=== PATIENT | male | born 1935 | race Caucasian/White ===

== ENCOUNTER 2018-02-12 20:52 | Inpatient (IN) | payer MEDICARE ==
[2018-02-12 21:44] LABS: BASO % 0.4 % (0.0-2.0); EOS # 0.2 K/uL (0.0-0.7); EOS % 1.6 % (0.0-4.0); LYMPH # 1.4 K/uL (1.0-4.3); LYMPH % 14.3 % (20.0-40.0); MEAN CELL VOLUME 97.1 fl (80.0-94.0); MEAN CORPUSCULAR HEMOGLOBIN 32.2 pg (27.0-31.0); MEAN CORPUSCULAR HGB CONC 33.1 g/dL (33.0-37.0); MEAN PLATELET VOLUME 9.6 fl (7.2-11.7); MONO # 0.9 K/uL (0.0-0.8); MONO % 9.3 % (0.0-10.0); NEUT # 7.3 K/uL (1.8-7.0); NEUT % 74.4 % (50.0-75.0); NRBC % 0.1 % (0.0-0.0); RBC 4.05 Mil/uL (4.40-5.90); RED CELL DISTRIBUTION WIDTH 14.2 % (11.5-14.5); WHITE BLOOD COUNT 9.8 K/uL (4.8-10.8)
[2018-02-12 21:45] LABS: INR 1.1; PROTHROMBIN TIME 12.2 Seconds (9.8-13.1)
[2018-02-12 21:48] LABS: PARTIAL THROMBOPLASTIN TIME 31.5 Seconds (25.6-37.1)
[2018-02-12 21:50] LABS: ALB/GLOB RATIO 1.2 (1.0-2.1); ALBUMIN 4.4 g/dL (3.5-5.0); ALT/SGPT 25 U/L (21-72); AST/SGOT 34 U/L (17-59); BLOOD UREA NITROGEN 31 mg/dl (9-20); CALCIUM 9.5 mg/dL (8.4-10.2); GFR NON-AFRICAN AMERICAN 45
[2018-02-12 21:59] LABS: SQUAMOUS EPITHIAL < 1 /hpf (0-5); URINE BACTERIA OCC (<OCC); URINE BILIRUBIN NEGATIVE (NEGATIVE); URINE BLOOD NEGATIVE (NEGATIVE); URINE CLARITY CLEAR (Clear); URINE COLOR YELLOW (YELLOW); URINE GLUCOSE (UA) 50 mg/dL (Normal); URINE LEUKOCYTE ESTERASE NEG Leu/uL (Negative); URINE PROTEIN 100 mg/dL (NEGATIVE); URINE UROBILINOGEN 0.2-1.0 mg/dL (0.2-1.0)
[2018-02-12] MEDS ORDERED: Sodium Chloride 0.9% 1,000 ML IV STA (22:05)
[2018-02-12] MEDS ORDERED: Lidocaine 5% Patch TD STA (22:30)
[2018-02-12] MEDS ORDERED: Lidocaine 5% Patch TD ONE (22:34)
--- NOTE | 2018-02-12 22:39 | ED PDOC ---
HPI: Trauma/Fall - HPI Time Seen by Provider: 02/12/18 21:08 Chief Complaint (Nursing): Trauma Chief Complaint (Provider): Trauma History Per: Patient Injury Occurred (Timing): Today @ (1400) Additional Complaint(s): Abraham Dickens is a 82 year old male with a history of Parkinsons, HTN, CAD and 5 vessel CABG, who presented to the emergency department after sustaining an unwitnessed fall, associated with loss of consciousness, onset 14:00 today. Patient was found by and EMS was called, however, patient refused to come with EMS. He took Tylenol for pain on his left side of chest but had no relief. Patient's pain made him unable to get out of bed. He states he also has back pain and pain on left shoulder and chest. Patient denies headaches. His history is unreliable because of Parkinson and dementia. PMD: Dr. Rebeca Calvo MD Cardiology: Dr. Soto Past Medical History Reviewed: Historical Data, Nursing Documentation, Vital Signs Vital Signs: Last Vital Signs Temp 98.6 F 02/12/18 21:02 Pulse 80 02/12/18 21:02 Resp 16 02/12/18 21:02 BP 153/84 H 02/12/18 21:02 Pulse Ox 99 02/12/18 21:02 - Medical History PMH: Diabetes, HTN, Parkinson's Disease - Surgical History Surgical History: CABG - Family History Family History: States: Unknown Family Hx - Social History Current smoker - smoking cessation education provided: No Alcohol: None - Home Medications Home Medications: Ambulatory Orders Medication Instructions Recorded RX: Carbidopa/Levodopa 25/250 25 - 250 tab PO QID 02/13/18 [Sinemet] RX: Insulin Glargine,Hum.rec.anlog 35 unit SQ HS 02/13/18 [Basaglar Kwikpen U-100] RX: Lisinopril [Zestril] 2.5 mg PO DAILY 02/13/18 RX: Metoprolol Succinate 25 mg PO DAILY 02/13/18 [Kapspargo Sprinkle] RX: Multivitamin/Iron/Folic Acid 1 each PO DAILY 02/13/18 [Certavite-Antioxidant Tablet] RX: Rasagiline Mesylate [Azilect] 1 mg PO DAILY 02/13/18 RX: Rosuvastatin Calcium [Crestor] 5 mg PO DAILY 02/13/18 RX: SITagliptin [Januvia] 100 mg PO DAILY 02/13/18 RX: Ammonium Lactate 12% 1 applic TOP Q8 02/16/18 [Lac-Hydrin 12% Lotion (225 g)] RX: Gabapentin [Neurontin] 100 mg PO Q12 02/16/18 RX: Insulin Human Regular [HumuLIN 0 units SC ACCU-CHECK ml 02/16/18 R] RX: Lactulose [Enulose] 10 gm PO DAILY PRN udc 02/16/18 RX: Lidocaine 5% [Lidoderm] 1 patch TOP 0600 02/16/18 RX: oxyCODONE/Acetaminophen 1 tab PO Q6 PRN tab 02/16/18 [Percocet 5/325 mg Tab] - Allergies Allergies/Adverse Reactions: Allergies Allergy/AdvReac Type Severity Reaction Status Date / Time No Known Allergies Allergy Verified 05/03/15 13:05 Review of Systems ROS Statement: Except As Marked, All Systems Reviewed And Found Negative Cardiovascular: Positive for: Chest Pain (left sided) Musculoskeletal: Positive for: Shoulder Pain (left ), Back Pain Neurological: Negative for: Headache Physical Exam - Reviewed Nursing Documentation Reviewed: Yes Vital Signs Reviewed: Yes - Physical Exam Appears: Positive for: In Acute Distress (mild painful distress) Head Exam: Positive for: ATRAUMATIC, NORMOCEPHALIC Skin: Positive for: Warm, Dry Eye Exam: Positive for: EOMI, PERRL ENT: Positive for: Pharynx Is (clear). Negative for: Tonsillar Swelling Neck: Positive for: Painless ROM, Supple Cardiovascular/Chest: Negative for: Chest Non Tender (exquisite ttp to left lateral chest wall, posterior chest wall ) Respiratory: Positive for: Decreased Breath Sounds (poor air movement). Negative for: Respiratory Distress Gastrointestinal/Abdominal: Positive for: Soft. Negative for: Tenderness Back: Positive for: L CVA Tenderness Extremity: Positive for: Other (difuse resting tremor; cogwheel rigidity of upper arms consistent with parkinson) Lymphatic: Negative for: Adenopathy Neurologic/Psych: Positive for: Alert, Oriented (x2). Negative for: Motor/Sensory Deficits - Laboratory Results Result Diagrams: 02/12/18 21:25 02/15/18 09:38 - ECG O2 Sat by Pulse Oximetry: 99 (RA) Pulse Ox Interpretation: Normal Medical Decision Making Medical Decision Making: Initial Time: 21:18 Initial Impression: Fall, LOC and left sided pain Initial Plan: --Ct of ches abd pel with iv contrast --Ct of head without contrast --EKG --EDNURTX --Chest xray --Urine Culture --Type and screen --CMP --Creatine phosphokinase --Lact acid, plasma --Magnesium --Phosphorous --Troponin --CBC with differential --Saline Lock --Sodium chloride 1,000 ml Time: 00:00 --Patient is endorsed to Dr. Myers pending CT results and re-evaluation. Scribe Attestation: Documented by Pacheco Underwood, acting as a scribe for Emilia Adam MD. Provider Scribe Attestation: All medical record entries made by the Scribe were at my direction and personally dictated by me. I have reviewed the chart and agree that the record accurately reflects my personal performance of the history, physical exam, medical decision making, and the department course for this patient. I have also personally directed, reviewed, and agree with the discharge instructions and disposition. Disposition - Clinical Impression Clinical Impression: Syncope - Disposition Disposition: Transfer of Care Disposition Time: 00:00 Condition: FAIR
[2018-02-12] MEDS ORDERED: Sodium Chloride 0.9% 50 ML IV ONE (23:32)
[2018-02-12] MEDS ORDERED: Iohexol 300 100 ML IJ ONE (23:32)
--- NOTE | 2018-02-13 01:15 | ED PDOC ---
- Laboratory Results Result Diagrams: 02/12/18 21:25 02/12/18 21:25 - ECG O2 Sat by Pulse Oximetry: 95 Medical Decision Making Medical Decision Making: Time: 00:00 --Patient is endorsed to provider by Dr. Adam pending imaging results and re-evaluation. Time: 114 --CT Head Findings: Chest: The pulmonary arteries are well-opacified with contrast, with no intraluminal filling defects to suggest embolism. The thoracic aorta is unremarkable. There is no pericardial or pleural effusion. The lungs demonstrate interstitial changes in the lower lobes bilaterally. There is no thoracic lymphadenopathy. The thyroid gland is within normal limits. Abdomen: The liver, spleen, pancreas, kidneys, and adrenal glands are grossly unremarkable. Several simple cysts are seen in the left kidney. Numerous small densities are seen in the dependent portion of the gallbladder. No pericholecystic inflammatory changes are seen however. The aorta is within normal limits. There is no evidence of abdominal lymphadenopathy or ascites. Pelvis: Moderate amount of stool fills the colon. The colon is otherwise unremarkable, with no obstructive or inflammatory changes. There is mild fluid distention of the small bowel with moderate bowel wall thickening. The appendix is normal. The urinary bladder is within normal limits. The other pelvic structures appear grossly intact. There is no evidence of pelvic lymphadenopathy or ascites. Bones: There are no suspicious osseous abnormalities seen. Impression: 1. No acute traumatic injury appreciated. 2. Bilateral lower lobe infiltrate/atelectasis. 3. Cholelithiasis without evidence of acute cholecystitis. 4. Simple left renal cysts. 5. Moderate constipation. 6. Mild small bowel enteritis. Time: 128 --Patient will be admitted for under medical service, Dr. Prabhakar. Dr. Prabhakar made aware. Scribe Attestation: Documented by Viviana De La Torre, acting as a scribe for Ever Myers MD. Provider Scribe Attestation: All medical record entries made by the Scribe were at my direction and personally dictated by me. I have reviewed the chart and agree that the record accurately reflects my personal performance of the history, physical exam, medic al decision making, and the department course for this patient. I have also personally directed, reviewed, and agree with the discharge instructions and disposition. Disposition - Clinical Impression Clinical Impression: Syncope - POA Present On Arrival: None - Disposition Disposition: Admitted as In-Patient Disposition Time: 02:00 Condition: FAIR
[2018-02-13] MEDS ORDERED: Metoprolol Succinate 25 mg XL Tab PO SCH (09:00)
[2018-02-13] MEDS: Acetaminophen-Codeine 300/30 mg Tab PO PRN ×2 (09:36→20:11)
--- NOTE | 2018-02-13 10:25 | CT ---
Date of service: 02/12/2018 PROCEDURE: CT HEAD WITHOUT CONTRAST. HISTORY: fall LOC COMPARISON: Comparison made with CT scan brain 05/03/2015. TECHNIQUE: Axial computed tomography images were obtained through the head/brain without intravenous contrast. Radiation dose: Total exam DLP = 1070.56 mGy-cm. This CT exam was performed using one or more of the following dose reduction techniques: Automated exposure control, adjustment of the mA and/or kV according to patient size, and/or use of iterative reconstruction technique. FINDINGS: HEMORRHAGE: There is a small amount of intraventricular hemorrhage seen layering in the dependent portions of both atria/occipital horns. These changes are best demonstrated on axial image number series 4, image # 19 and 20 Note that these findings BRAIN: Moderate to significant diffuse and confluent chronic white matter ischemic changes seen extending peripherally into the deep and subcortical white matter both cerebral hemispheres. Extension into the white matter tracts of both basal nuclei. Multiple more discrete deep and subcortical white matter as well as basal nuclei ischemic changes are present. No obvious parenchymal nor extra-axial mass or collection seen on this noncontrast study. Moderate to significant generalized volume loss. Dense vascular calcifications both carotid siphons VENTRICLES: No obstructive hydrocephalus however note again made of asymmetry of the lateral ventricles left-sided which is larger than the right nonspecific. Fetus B to yoga PA adenoma limits pigtail her in the CALVARIUM: No acute calvarial fractures. There is localized scarring seen along the left superior frontal scalp. PARANASAL SINUSES: Normal mucosal thickening right maxillary sinus. MASTOID AIR CELLS: Unremarkable as visualized. No inflammatory changes. OTHER FINDINGS: Changes of bilateral cataract surgery. There along a montejo of the globes in the AP dimension with questionable coloboma/staphyloma formation. IMPRESSION: There is small amount of intraventricular hemorrhage hemorrhage seen layering in both atria. Moderate to significant chronic white matter and basal nuclei ischemic changes. Moderate generalized volume loss. Findings were placed in PA review folder for follow up.. Note these findings were also discussed with emergency room RALPH Bolton at approximately 10 18 a.m. with written down and read back verification
--- NOTE | 2018-02-13 10:34 | ED PDOC ---
ED Additional Note - Date & Time of Evaluation Date of Evaluation: 02/13/18 - Physician Additional Note Physician Additional Note: This chief writer was called by radiologist re: Head CT performed yesterday that shows small intracranial hemorrhage without mass effect that was not read last night. After patient's chart review, he was admitted under Dr. Prabhakar whom I spoke with about the CT scan finding. He stated understanding of the finding and that he would follow-up.
[2018-02-13] MEDS: Carbidopa/Levodopa 25/250 PO SCH ×4 (11:29→21:59)
[2018-02-13] MEDS: Multivitamin With Minerals Tab PO SCH (11:29)
[2018-02-13] MEDS: Lidocaine 5% Patch TD SCH (11:31)
--- NOTE | 2018-02-13 11:31 | CT ---
Date of service: 02/13/2018 PROCEDURE: CT HEAD WITHOUT CONTRAST. HISTORY: compare COMPARISON: Comparison made with CT scan brain 02/12/2018. TECHNIQUE: Axial computed tomography images were obtained through the head/brain without intravenous contrast. Radiation dose: Total exam DLP = 944.0 mGy-cm. This CT exam was performed using one or more of the following dose reduction techniques: Automated exposure control, adjustment of the mA and/or kV according to patient size, and/or use of iterative reconstruction technique. FINDINGS: HEMORRHAGE: Redemonstrated is a small amount of intraventricular hemorrhage is again seen layering in the dependent portion of both atria-occipital horns. BRAIN: Moderate to fairly significant diffuse and confluent chronic white matter ischemic changes seen extending peripherally into the deep and subcortical white matter of both cerebral hemispheres. In addition, there are scattered chronic bilateral basal nuclei lacunar type infarcts. Note that the possibility of a small hyperacute infarct cannot be excluded. Moderate to significant generalized volume loss Dense vascular calcifications both carotid siphons the the the and vertebral arteries.. VENTRICLES: As above. No obstructive hydrocephalus. CALVARIUM: No acute calvarial fractures. PARANASAL SINUSES: Mild mucosal thickening both maxillary antra the MASTOID AIR CELLS: Unremarkable as visualized. No inflammatory changes. OTHER FINDINGS: Changes of bilateral cataract surgery. IMPRESSION: Redemonstrated is a small amount of intraventricular hemorrhage seen layering in the dependent portion of both atria and occipital horns. Moderate to significant chronic white matter ischemic changes with scattered chronic bilateral basal nuclei lacunar type infarcts. Moderate to fairly significant generalized volume loss.
--- NOTE | 2018-02-13 11:39 | CP.PCM.CON ---
History of Present Illness - History of Present Illness History of Present Illness: Neurology consult dictated. Patient seen: 82 yr old male with Parkinsons disease and history of falls, who fell and now has a small amount of intraventricular hemorrhage layering in bilateral atria. He is stable with no seizures, and baseline mental status. Plan: 1. Neurosurgery consult. 2. Hold all anticoagulants 3. Will evaluate parkinsons meds. Thank you Dr. barbour Past Patient History - Past Medical History & Family History Past Medical History?: Yes - Past Social History Smoking Status: Never Smoked - CARDIAC Hx Hypertension: Yes - NEUROLOGICAL Hx Parkinson's Disease: Yes - ENDOCRINE/METABOLIC Hx Endocrine Disorders: Yes - MUSCULOSKELETAL/RHEUMATOLOGICAL Hx Falls: Yes - PSYCHIATRIC Hx Substance Use: No - SURGICAL HISTORY Hx Coronary Artery Bypass Graft: Yes - ANESTHESIA Hx Anesthesia: Yes Hx Anesthesia Reactions: No Hx Malignant Hyperthermia: No Meds Allergies/Adverse Reactions: Allergies Allergy/AdvReac Type Severity Reaction Status Date / Time No Known Allergies Allergy Verified 05/03/15 13:05 - Medications Medications: Current Medications Acetaminophen/Codeine Phosphate (Tylenol/Codeine 300 Mg/30 Mg) 1 tab PO TID PRN PRN Reason: Pain, moderate (4-7) Last Admin: 02/13/18 09:36 Dose: 1 tab Carbidopa/Levodopa (Sinemet) 1 tab PO QID [facility] Last Admin: 02/13/18 11:29 Dose: 1 tab Insulin Human Regular (Humulin R) 0 units SC ACCU-CHECK FLOR; Protocol Lidocaine (Lidoderm) 1 ea TD DAILY [facility] Last Admin: 02/13/18 11:31 Dose: Not Given Lisinopril (Zestril) 2.5 mg PO DAILY [facility] Last Admin: 02/13/18 11:28 Dose: 2.5 mg Metoprolol Succinate (Toprol Xl) 25 mg PO DAILY [facility] Last Admin: 02/13/18 11:30 Dose: 25 mg Multivitamins/Minerals (Therapeutic-M Tab) 1 tab PO DAILY [facility] Last Admin: 02/13/18 11:29 Dose: 1 tab Sitagliptin Phosphate (Januvia) 100 mg PO DAILY [facility] Last Admin: 02/13/18 11:30 Dose: 100 mg Results - Vital Signs Recent Vital Signs: Last Vital Signs Temp 98.5 F 02/13/18 08:39 Pulse 65 02/13/18 08:39 Resp 20 02/13/18 08:39 BP 173/73 H 02/13/18 08:39 Pulse Ox 95 02/13/18 08:39 - Labs Result Diagrams: 02/12/18 21:25 02/12/18 21:25 Labs: Laboratory Results - last 24 hr 02/12/18 02/12/18 02/12/18 21:25 21:25 21:25 WBC 9.8 RBC 4.05 L Hgb 13.0 Hct 39.3 MCV 97.1 H MCH 32.2 H MCHC 33.1 RDW 14.2 Plt Count 144 MPV 9.6 Neut % (Auto) 74.4 Lymph % (Auto) 14.3 L [place] % (Auto) 9.3 Eos % (Auto) 1.6 Baso % (Auto) 0.4 Neut # (Auto) 7.3 H Lymph # (Auto) 1.4 [place] # (Auto) 0.9 H Eos # (Auto) 0.2 Baso # (Auto) 0.0 PT INR APTT Sodium 143 Potassium 5.1 H Chloride 108 H Carbon Dioxide 26 Anion Gap 14 BUN 31 H Creatinine 1.5 Est GFR ( Amer) 54 Est GFR (Non-Af Amer) 45 Random Glucose 141 H Lactic Acid 1.5 Calcium 9.5 Phosphorus 3.1 Magnesium 2.0 Total Bilirubin 1.6 H AST 34 ALT 25 Alkaline Phosphatase 80 Total Creatine Kinase 239 H Troponin I < 0.0120 Total Protein 8.1 Albumin 4.4 Globulin 3.7 Albumin/Globulin Ratio 1.2 Urine Color Urine Clarity Urine pH Ur Specific [place] Urine Protein Urine Glucose (UA) Urine Ketones Urine Blood Urine Nitrate Urine Bilirubin Urine Urobilinogen Ur Leukocyte Esterase Urine RBC (Auto) Urine Microscopic WBC Ur Squamous Epith Cells Urine Bacteria 02/12/18 02/12/18 21:25 21:37 WBC RBC Hgb Hct MCV MCH MCHC RDW Plt Count MPV Neut % (Auto) Lymph % (Auto) [place] % (Auto) Eos % (Auto) Baso % (Auto) Neut # (Auto) Lymph # (Auto) [place] # (Auto) Eos # (Auto) Baso # (Auto) PT 12.2 INR 1.1 APTT 31.5 Sodium Potassium Chloride Carbon Dioxide Anion Gap BUN Creatinine Est GFR ( Amer) Est GFR (Non-Af Amer) Random Glucose Lactic Acid Calcium Phosphorus Magnesium Total Bilirubin AST ALT Alkaline Phosphatase Total Creatine Kinase Troponin I Total Protein Albumin Globulin Albumin/Globulin Ratio Urine Color Yellow Urine Clarity Clear Urine pH 5.0 Ur Specific [place] 1.019 Urine Protein 100 Urine Glucose (UA) 50 Urine Ketones Negative Urine Blood Negative Urine Nitrate Negative Urine Bilirubin Negative Urine Urobilinogen 0.2-1.0 Ur Leukocyte Esterase Neg Urine RBC (Auto) 3 Urine Microscopic WBC < 1 Ur Squamous Epith Cells < 1 Urine Bacteria Occ H
--- NOTE | 2018-02-13 11:53 | CP.PCM.PN ---
Subjective - Date & Time of Evaluation Date of Evaluation: 02/13/18 Time of Evaluation: 11:51 - Subjective Subjective: 82 yo male who has mult falls adm yest am with ct showing small ampount of blood in both occip horns of the ventricles repeat ct 24 hrs later unchanged no surgical intervention indicated neurosurgically clear for d/c Objective - Vital Signs/Intake and Output Vital Signs (last 24 hours): Temp Pulse Resp BP Pulse Ox 98.5 F 65 20 173/73 H 95 02/13/18 08:39 02/13/18 08:39 02/13/18 08:39 02/13/18 08:39 02/13/18 08:39 - Medications Medications: Current Medications Acetaminophen/Codeine Phosphate (Tylenol/Codeine 300 Mg/30 Mg) 1 tab PO TID PRN PRN Reason: Pain, moderate (4-7) Last Admin: 02/13/18 09:36 Dose: 1 tab Carbidopa/Levodopa (Sinemet) 1 tab PO QID [facility] Last Admin: 02/13/18 11:29 Dose: 1 tab Insulin Human Regular (Humulin R) 0 units SC ACCU-CHECK FLOR; Protocol Lidocaine (Lidoderm) 1 ea TD DAILY [facility] Last Admin: 02/13/18 11:31 Dose: Not Given Lisinopril (Zestril) 2.5 mg PO DAILY [facility] Last Admin: 02/13/18 11:28 Dose: 2.5 mg Metoprolol Succinate (Toprol Xl) 25 mg PO DAILY [facility] Last Admin: 02/13/18 11:30 Dose: 25 mg Multivitamins/Minerals (Therapeutic-M Tab) 1 tab PO DAILY [facility] Last Admin: 02/13/18 11:29 Dose: 1 tab Sitagliptin Phosphate (Januvia) 100 mg PO DAILY [facility] Last Admin: 02/13/18 11:30 Dose: 100 mg - Labs Labs: 02/12/18 21:25 02/12/18 21:25 PT 12.2 Seconds (9.8-13.1) 02/12/18 21:25 INR 1.1 02/12/18 21:25 APTT 31.5 Seconds (25.6-37.1) 02/12/18 21:25
--- NOTE | 2018-02-13 12:29 | CARD ---
APPROVED REPORT Date of service: 02/12/2018 EKG Measurement Heart [id number] <Conclusion> Sinus rhythm with 1st degree AV block Right bundle branch block Abnormal ECG
--- NOTE | 2018-02-13 15:15 | RAD ---
Date of service: 02/12/2018 HISTORY: LEFT sided chest pain trauma COMPARISON: Correlation made with subsequent CT scan chest 02/12/2018 at 2346 hr FINDINGS: LUNGS: Mild bibasilar atelectasis PLEURA: No significant pleural effusion identified, no pneumothorax apparent. CARDIOVASCULAR: Minimal aortic atherosclerotic calcification present Cardiomegaly.. OSSEOUS STRUCTURES: No old healed fracture deformity left posterior 5th rib. VISUALIZED UPPER ABDOMEN: Normal. OTHER FINDINGS: None. IMPRESSION: Mild bibasilar atelectasis. Cardiomegaly.
--- NOTE | 2018-02-13 16:37 | CT ---
Date of service: 02/12/2018 PROCEDURE: CT Chest, Abdomen and Pelvis with intravenous contrast HISTORY: LEFT flank pain s/p fall COMPARISON: Comparison made with chest radiograph obtained earlier same day TECHNIQUE: Contiguous helical/transaxial sections of the chest and pelvis performed following intravenous injection of approximately 95 cc of Omnipaque 300. Additional 2D sagittal and coronal reformats generated Radiation dose: Total exam DLP = 961.7 mGy-cm. This CT exam was performed using one or more of the following dose reduction techniques: Automated exposure control, adjustment of the mA and/or kV according to patient size, and/or use of iterative reconstruction technique. FINDINGS: . No evidence of effusion or pneumothorax. CT CHEST WITH CONTRAST: LUNGS: Atelectatic changes are seen within both posterior lower lung carreon with suspected mild pleural thickening left posterior sulcus.. MEDIASTINUM: The sternotomy wires again noted heart is enlarged. No significant pericardial effusion.. There is minimal aortic atherosclerotic calcification and mural plaque the no evidence of thoracic aortic aneurysm. LYMPH NODES: No significant mediastinal or hilar adenopathy. Trachea midline and patent. No large endoluminal lesions. There is a small hiatal hernia with wall thickening of the distal esophagus likely due to protrusion gastric mucosa. Esophagitis not excluded. PLEURA: Tiny left-sided effusion not excluded BONES: There are acute fractures of the left posterolateral 4th, 5th, 6th and 7th ribs with old healed fractures deformities of the left posterior 5th, 6th 7th and 8th ribs. There may be some localized subpleural induration or edema subjacent to the acute rib fractures. No evidence of acute compression fractures nor retropulsed fragments of the visualized thoracic spine however there are minor minor chronic superior endplate deformity of the T2 and to a lesser degree T4 and superior T10 endplates.. Vertebral bodies otherwise exhibit normal stature. Vertebral bodies and facets normally aligned. Multilevel degenerative spondylosis. OTHER FINDINGS: None. CT ABDOMEN AND PELVIS: LIVER: The liver exhibits normal size measuring approximately 12.8 cm. Minimal fatty hepatic infiltration.. No gross lesion or ductal dilatation. GALLBLADDER AND BILE DUCTS: Layering intraluminal gallbladder calculi and possible layering sludge. PANCREAS: Unremarkable. No gross lesion or ductal dilatation. SPLEEN: Unremarkable. ADRENALS: There are small round/elliptical shaped bilateral adrenal lesions; right-sided measuring approximately 17 mm and left side measuring approximately 13.7 mm... The Hounsfield units obtained within the right adrenal lesion range in the upper 30s to mid 50s and on the left mid 40s. These Hounsfield units are not compatible with simple adenoma and therefore follow-up MRI of the adrenal glands recommended for further evaluation. KIDNEYS AND URETERS: Kidneys appear intact and demonstrate relatively symmetric nephrograms. There are several low-attenuation foci left kidney the largest focus along the anterolateral midpole region measuring approximately 21 mm. These foci statistically probably represent small cysts. Renal ultrasound follow-up could confirm. VASCULATURE: There is mild atherosclerotic calcification or mural plaque present. Unremarkable. No aortic aneurysm. BOWEL: Evaluation of the bowel is somewhat limited due to lack of oral contrast material. The stomach is incompletely distended which presumably in part accounts for thick-walled appearance. Visualized loops of small bowel exhibit normal contour and caliber. No evidence of acute mechanical small bowel obstruction. Moderate amount of stool seen within the large bowel particularly within the cecum, at ascending and transverse colon consistent with fecal retention/constipation. APPENDIX: Normal-appearing appendix. PERITONEUM: Unremarkable. No free fluid. No free air. LYMPH NODES: Unremarkable. No enlarged lymph nodes. BLADDER: Urinary bladder appears incompletely distended however no evidence of intraluminal urinary bladder calculi. REPRODUCTIVE: Prostate gland measures approximately 3.9 cm in transverse dimension. Findings likely due to BPH however correlation with PSA recommended. Prostatic calcifications are present. BONES: Mild multilevel degenerative spondylosis of the lumbar spine. There are no acute compression fractures no retropulsed fragments. OTHER FINDINGS: None. IMPRESSION: Mild bibasilar atelectasis. There are acute fractures of the left posterolateral 4th, 5th, 6th and 7th ribs with old healed fractures deformities of the left posterior 5th, 6th 7th and 8th ribs.. There may be some localized subpleural induration or edema subjacent to the acute rib fractures. No evidence of intrathoracic or intra abdominal posttraumatic sequela. Cardiomegaly. Bilateral adrenal lesions right larger than left. Recommend follow-up MRI of the adrenal glands. Minimal fatty hepatic infiltration. There are at least 2 low-attenuation foci left kidney likely representing renal cysts. Renal ultrasound follow-up could be performed to confirm. Findings consistent with constipation. Preliminary report is discordant. This report was placed in [facility] review folder for follow up..
[2018-02-13] MEDS: Insulin Regular 100 units/ml SC SCH ×2 (16:48→22:03)
--- NOTE | 2018-02-13 17:05 | RAD ---
Date of service: 02/13/2018 PROCEDURE: Radiographs of the Lumbar Spine. HISTORY: fall COMPARISON: Comparison made with CT scan chest abdomen pelvis 02/12/2018 which imaged the lumbar spine in 3 planes FINDINGS: BONES: No acute fractures DISC SPACES: Minor multilevel degenerative spondylosis lower thoracic and upper lumbar region OTHER FINDINGS: None. IMPRESSION: No acute fractures. Please refer to CT scan chest abdomen pelvis and corresponding report 02/12/2018 for additional details
--- NOTE | 2018-02-13 17:08 | RAD ---
PROCEDURE: Radiographs of the pelvis and bilateral hips HISTORY: fall with pain COMPARISON: Correlation made with CT scan chest abdomen pelvis 02/12/2018 which imaged the pelvis and both hips in 3 planes FINDINGS: BONES: No evidence of acute displaced fracture nor dislocation. The osseous structures appear intact. Both femoral heads are appropriately located within the respective acetabula. Minor degenerative osteoarthritis both hip joints.. JOINTS: See above the as above SOFT TISSUES: Vascular calcifications. Metallic clips both inguinal regions possibly due to prior inguinal hernia repair OTHER FINDINGS: None. IMPRESSION: No evidence of acute displaced fracture nor dislocation. Mild degenerative osteoarthritis. No acute fractures. Please refer to CT scan chest abdomen pelvis and corresponding report 02/12/2018 for additional details
--- NOTE | 2018-02-14 06:57 | CON ---
DATE: 02/13/2018 NEUROLOGY CONSULT HISTORY OF PRESENT ILLNESS: This is an 82-year-old male with past medical history of Parkinson's disease, hypertension, CAD and 5-vessel CABG, sent to the emergency department after sustaining a witnessed fall with loss of consciousness at around 1400 on 02/12/2018. The patient was found by EMS and ; and he was refusing coming to the emergency room, but he eventually arrived later on the day at around 2100. He has history of dementia as well. Today, the patient is seen on [address] scan was read and showed to have a biatrial intraventricular hemorrhage. He is stable at the point of examination, but he is not able to answer questions appropriately due to his dementia. REVIEW OF SYSTEMS: Not accurate due to mental status. PAST MEDICAL HISTORY: Diabetes, hypertension, and Parkinson's disease as above. SURGICAL HISTORY: CABG. FAMILY HISTORY AND SOCIAL HISTORY: No alcohol. No tobacco. Lives with family. ALLERGIES: NO KNOWN DRUG ALLERGIES. MEDICATIONS: As follows: Aspirin 81 mg p.o. daily; Sinemet 25/250 two tablets 4 times a day, times not known; insulin glargine 35 units subcu at bedtime; lisinopril 25 mg p.o. daily; metoprolol 25 mg p.o. daily; multivitamin, Vasograin; Azilect 1 mg p.o. daily; Crestor 5 mg p.o. daily; Januvia 100 mg p.o. daily. not known. PHYSICAL EXAMINATION: GENERAL: The patient is awake, alert; not oriented to person, place or time. He cannot name or repeat. He is able to follow one-step commands sporadically. NEUROLOGIC: Cranial nerves are II through XII normal. Pupils are equal, round, and reactive to light. There is no facial asymmetry. He does complain severe right shoulder and leg pain although he can move his extremities equally with normal strength. There is a significant resting tremor noted of high amplitude, that is nature. There is significant cogwheel rigidity bilaterally. There is mask-like facies as well. The patient has a bioinformatics assistant of 5/5. Sensory exam is not accurate. Cerebellar gait is not tested due to the patient's mental status. Reflexes are +2 upper and lower limbs bilaterally. LABORATORY DATA: As follows: White count 9.8, hemoglobin 13, hematocrit 39.3, platelet 144. Coags are normal. Chemistry: Sodium 143, potassium 5.1, chloride 108, BUN 31, creatinine 1.5, glucose 141, AST 34, ALT 25, total creatinine kinase 239. Urine is normal. CAT scan of the head was done and ensured intraatrial and intraventricular hemorrhage that is layering. IMPRESSION: This is an 82-year-old male, who fell and most likely sustained intracranial hemorrhage secondary to trauma. There is no subarachnoid component to his hemorrhage. There is no subdural. There is no skull fracture. However, it is concerning that his falls are continuing and that now he sustained intracranial hemorrhage as a result of these falls. It is recommended that we adjust his Parkinsonian medications. In addition, Neurosurgery should be called for possible intervention. Please hold all anticoagulation. Please control blood pressure aggressively. Physical therapy is needed. Thank you for this interesting consult. Tayla Mckoy MD
--- NOTE | 2018-02-14 07:00 | CARD ---
APPROVED REPORT Date of service: 02/13/2018 EKG Measurement Heart [id number] <Conclusion> Sinus bradycardia with 1st degree AV block Right bundle branch block Abnormal ECG
--- NOTE | 2018-02-14 08:17 | CP.PCM.HP ---
History of Present Illness - History of Present Illness History of Present Illness: This is an 82 y/o male with hx of CAB CABG Parkinsons who had a fall and loss of consciousness. CT scan of the head showed a small area of intervent hemorrhage patient has no complaint of headaches but complains of tenderness on the left shoulder and upper back from the fall and left rib acge area. CT scan showed multiple acute rib fracture left anterior 4th 5th 6th and 7th ribs. Also noted old fractures of steph left rib cage. Also noted renal cyst and adrenal gland lesions and gallbladder stone. Present on Admission - Present on Admission Any Indicators Present on Admission: No History of DVT/PE: No History of Uncontrolled Diabetes: Yes Urinary Catheter: No Decubitus Ulcer Present: No Past Patient History - Past Medical History & Family History Past Medical History?: Yes - Past Social History Smoking Status: Never Smoked - CARDIAC Hx Hypertension: Yes - NEUROLOGICAL Hx Parkinson's Disease: Yes - ENDOCRINE/METABOLIC Hx Endocrine Disorders: Yes - MUSCULOSKELETAL/RHEUMATOLOGICAL Hx Falls: Yes - PSYCHIATRIC Hx Substance Use: No - SURGICAL HISTORY Hx Coronary Artery Bypass Graft: Yes - ANESTHESIA Hx Anesthesia: Yes Hx Anesthesia Reactions: No Hx Malignant Hyperthermia: No Meds Allergies/Adverse Reactions: Allergies Allergy/AdvReac Type Severity Reaction Status Date / Time No Known Allergies Allergy Verified 05/03/15 13:05 Physical Exam - Head Exam Head Exam: NORMAL INSPECTION - Eye Exam Eye Exam: Normal appearance - Respiratory Exam Respiratory Exam: Decreased Breath Sounds, Clear to Auscultation Bilateral - Cardiovascular Exam Cardiovascular Exam: REGULAR RHYTHM - GI/Abdominal Exam GI & Abdominal Exam: Normal Bowel Sounds - Neurological Exam Neurological exam: CN II-XII Intact - Psychiatric Exam Psychiatric exam: Normal Mood Results - Vital Signs Recent Vital Signs: Last Vital Signs Temp 98.5 F 02/14/18 04:41 Pulse 60 02/14/18 04:41 Resp 19 02/14/18 04:41 BP 135/69 02/14/18 04:41 Pulse Ox 97 02/14/18 04:41 - Labs Result Diagrams: 02/12/18 21:25 02/12/18 21:25 Labs: Laboratory Results - last 24 hr 02/13/18 14:24 Vitamin B12 444 TSH 3rd Generation 1.51 Assessment & Plan (1) Cerebral hemorrhage Status: Acute (2) Rib fractures Status: Acute (3) Cerebral hemorrhage Status: Acute - Assessment and Plan (Free Text) Plan: start PT neuro eval follow up with telemetry discussed with family
[2018-02-14] MEDS: Insulin Regular 100 units/ml SC SCH ×4 (08:54→23:08)
[2018-02-14] MEDS: Multivitamin With Minerals Tab PO SCH (08:54)
[2018-02-14] MEDS: Carbidopa/Levodopa 25/250 PO SCH ×4 (08:54→21:42)
[2018-02-14] MEDS: Lidocaine 5% Patch TD SCH (08:55)
[2018-02-14] MEDS: Acetaminophen-Codeine 300/30 mg Tab PO PRN ×2 (09:01→16:53)
[2018-02-14 12:56] LABS: FOLATE 11.6 ng/mL
[2018-02-15] MEDS: Acetaminophen-Codeine 300/30 mg Tab PO PRN (06:02)
[2018-02-15] MEDS: Insulin Regular 100 units/ml SC SCH ×4 (06:04→22:21)
[2018-02-15] MEDS: Lidocaine 5% Patch TD SCH (09:10)
[2018-02-15] MEDS: Multivitamin With Minerals Tab PO SCH (09:10)
[2018-02-15] MEDS: Carbidopa/Levodopa 25/250 PO SCH ×4 (09:11→21:43)
[2018-02-15 11:12] LABS: CALCIUM 9.3 mg/dL (8.4-10.2)
--- NOTE | 2018-02-15 11:44 | CP.PCM.CON ---
History of Present Illness - History of Present Illness History of Present Illness: 82 yo man s/p fall is referred for pain management. Patient complains mainly of left shoulder pain and left lateral chest wall pain. Patient was found to be acute on chronic 4 rib fractures. Thus far, Lidoderm patches and T#3 haven't helped with his pain. Past Patient History - Past Medical History & Family History Past Medical History?: Yes - Past Social History Smoking Status: Never Smoked - CARDIAC Hx Hypertension: Yes - NEUROLOGICAL Hx Parkinson's Disease: Yes - ENDOCRINE/METABOLIC Hx Endocrine Disorders: Yes - MUSCULOSKELETAL/RHEUMATOLOGICAL Hx Falls: Yes - PSYCHIATRIC Hx Substance Use: No - SURGICAL HISTORY Hx Coronary Artery Bypass Graft: Yes - ANESTHESIA Hx Anesthesia: Yes Hx Anesthesia Reactions: No Hx Malignant Hyperthermia: No Meds Allergies/Adverse Reactions: Allergies Allergy/AdvReac Type Severity Reaction Status Date / Time No Known Allergies Allergy Verified 05/03/15 13:05 - Medications Medications: Current Medications Carbidopa/Levodopa (Sinemet) 1 tab PO QID [facility] Last Admin: 02/15/18 09:11 Dose: 1 tab Gabapentin (Neurontin) 100 mg PO BID [facility] Insulin Human Regular (Humulin R) 0 units SC ACCU-CHECK [facility]; Protocol Last Admin: 02/15/18 06:04 Dose: Not Given Lactic Acid (Lac-Hydrin 12% Lotion (225 G)) 1 applic TOP TID [facility] Last Admin: 02/15/18 09:10 Dose: 1 applic Lidocaine (Lidoderm) 1 ea TD DAILY [facility] Last Admin: 02/15/18 09:10 Dose: 1 ea Lisinopril (Zestril) 2.5 mg PO DAILY [facility] Last Admin: 02/15/18 09:10 Dose: 2.5 mg Metoprolol Succinate (Toprol Xl) 25 mg PO DAILY [facility] Last Admin: 02/13/18 11:30 Dose: 25 mg Multivitamins/Minerals (Therapeutic-M Tab) 1 tab PO DAILY [facility] Last Admin: 02/15/18 09:10 Dose: 1 tab Oxycodone/Acetaminophen (Percocet 5/325 Mg Tab) 1 tab PO Q6 PRN PRN Reason: Pain, severe (8-10) Stop: 02/18/18 11:40 Sitagliptin Phosphate (Januvia) 100 mg PO DAILY [facility] Last Admin: 02/15/18 09:10 Dose: 100 mg Physical Exam - Respiratory Exam Respiratory Exam: Chest Wall Tenderness Results - Vital Signs Recent Vital Signs: Last Vital Signs Temp 97.5 F L 02/15/18 08:01 Pulse 75 02/15/18 09:10 Resp 18 02/15/18 08:01 BP 121/73 02/15/18 09:10 Pulse Ox 96 02/15/18 08:01 - Labs Result Diagrams: 02/12/18 21:25 02/15/18 09:38 Labs: Laboratory Results - last 24 hr 02/13/18 02/14/18 02/14/18 14:24 16:09 21:09 Sodium Potassium Chloride Carbon Dioxide Anion Gap BUN Creatinine Est GFR ( Amer) Est GFR (Non-Af Amer) POC Glucose (mg/dL) 142 H 179 H Random Glucose Calcium Folate 11.6 02/15/18 02/15/18 02/15/18 05:05 09:38 11:33 Sodium 139 Potassium 4.7 Chloride 101 Carbon Dioxide 29 Anion Gap 14 BUN 39 H Creatinine 1.4 Est GFR ( Amer) 59 Est GFR (Non-Af Amer) 49 POC Glucose (mg/dL) 123 H 257 H Random Glucose 157 H Calcium 9.3 Folate Assessment & Plan - Assessment and Plan (Free Text) Assessment: 82 yo man s/p fall, has left shoulder and chest wall pain from fractures. Inter costal nerve blocks are short lasting, and risky due to number of ribs involved, as a result not indicated. PO NSAIDs are contraindicated due to bleeding. T#3 is insufficient, can increase to Percocet. Add Neurontin for neuropathic component of pain. - d/c T#3, start Percocet 5/325mg q6h PRN (can change to Vicodin for outpatient if Percocet is too strong, but Vicodin isn't on formulary) - add Neurontin 100mg BID, titrate as needed - can add Voltaren gel to chest wall for outpatient use, gel is not formulary
--- NOTE | 2018-02-15 12:47 | CP.PCM.PN ---
Subjective - Date & Time of Evaluation Date of Evaluation: 02/15/18 Time of Evaluation: 11:00 - Subjective Subjective: patient in bathroom during rounds. spoke with nursing staff as well as house staff. no acute events overnight. Seen by PT, neurology, neurosurgery. Pain management pending. Objective - Vital Signs/Intake and Output Vital Signs (last 24 hours): Temp Pulse Resp BP Pulse Ox 97.7 F 72 18 108/67 96 02/15/18 11:57 02/15/18 11:57 02/15/18 11:57 02/15/18 11:57 02/15/18 11:57 - Medications Medications: Current Medications Carbidopa/Levodopa (Sinemet) 1 tab PO QID [facility] Last Admin: 02/15/18 09:11 Dose: 1 tab Gabapentin (Neurontin) 100 mg PO BID [facility] Insulin Human Regular (Humulin R) 0 units SC ACCU-CHECK [facility]; Protocol Last Admin: 02/15/18 11:48 Dose: 6 units Lactic Acid (Lac-Hydrin 12% Lotion (225 G)) 1 applic TOP TID [facility] Last Admin: 02/15/18 11:47 Dose: 1 applic Lidocaine (Lidoderm) 1 ea TD DAILY [facility] Last Admin: 02/15/18 09:10 Dose: 1 ea Lisinopril (Zestril) 2.5 mg PO DAILY [facility] Last Admin: 02/15/18 09:10 Dose: 2.5 mg Metoprolol Succinate (Toprol Xl) 25 mg PO DAILY [facility] Last Admin: 02/13/18 11:30 Dose: 25 mg Multivitamins/Minerals (Therapeutic-M Tab) 1 tab PO DAILY [facility] Last Admin: 02/15/18 09:10 Dose: 1 tab Oxycodone/Acetaminophen (Percocet 5/325 Mg Tab) 1 tab PO Q6 PRN PRN Reason: Pain, severe (8-10) Stop: 02/18/18 11:40 Sitagliptin Phosphate (Januvia) 100 mg PO DAILY [facility] Last Admin: 02/15/18 09:10 Dose: 100 mg - Labs Labs: 02/12/18 21:25 02/15/18 09:38 PT 12.2 Seconds (9.8-13.1) 02/12/18 21:25 INR 1.1 02/12/18 21:25 APTT 31.5 Seconds (25.6-37.1) 02/12/18 21:25 Assessment and Plan - Assessment and Plan (Free Text) Assessment: 82 y/o male with hx of CAB CABG Parkinsons who had a fall and loss of consciousness. CT scan of the head showed a small area of intervent hemorrhage. continue PT, recommends acute rehab bradycardia improved, cardiology consult pending neurosurgery cleared patient pain management pending evaluation c/w plan as ordered
[2018-02-15] MEDS: Oxycodone/Acetaminophen 5/325 mg Tab PO PRN (14:36)
--- NOTE | 2018-02-15 18:11 | CP.PCM.CON ---
History of Present Illness - History of Present Illness History of Present Illness: I was asked to see patient by DR Prabhakar. Patient seen on 02/15/18 0480 Patient is a 82 year old malewith HTN, CAD s/p CABG, Parkinson's who presents with a fall. The patient's states he was at home when he lost his balance. The patient was suffered rib fractures. He denies chest pain. His baseline EKG reveals sinus bradycardia with first degree AV block and RBBB. The patient has had heart rate in the 40s. Review of Systems - Constitutional Constitutional: absent: As Per HPI, Anorexia, Chills, Daytime Sleepiness, Excessive Sweating, Fatigue, Fever, Frequent Falls, Headache, Increased Appetite, Lethargy, Malaise, Night Sweats, Snoring, Sleep Apnea, Weight Gain, Weight Loss, Weakness, Other - EENT Eyes: absent: As Per HPI, Blind Spots, Blurred Vision, Change in Vision, Decreased Night Vision, Diplopia, Discharge, Dry Eye, Exophthalmos, Floaters, Irritation, Itchy Eyes, Loss of Peripheral Vision, Pain, Photophobia, Requires Corrective Lenses, Sees Flashes, Spots in Vision, Tunnel Vision, Other Visual Disturbances, Loss of Vision, Other Ears: absent: As Per HPI, Decreased Hearing, Ear Discharge, Ear Pain, Tinnitus, Abnormal Hearing, Disequilibrium, Dizziness, Other Nose/Mouth/Throat: absent: As Per HPI, Epistaxis, Nasal Congestion, Nasal Discharge, Nasal Obstruction, Nasal Trauma, Nose Pain, Post Nasal Drip, Sinus Pain, Sinus Pressure, Bleeding Gums, Change in Voice, Dental Pain, Dry Mouth, Dysphagia, Halitosis, Hoarsness, Lip Swelling, Mouth Lesions, Mouth Pain, Odynophagia, Sore Throat, Throat Swelling, Tongue Swelling, Facial Pain, Neck Pain, Neck Mass, Other - Cardiovascular Cardiovascular: Slow Heart Rate, Syncope - Respiratory Respiratory: absent: As Per HPI, Cough, Dyspnea, Hemoptysis, Dyspnea on Exertion, Wheezing, Snoring, Stridor, Pain on Inspiration, Chest Congestion, Excessive Mucous Production, Change in Mucous Color, Pain with Coughing, Other - Gastrointestinal Gastrointestinal: absent: As Per HPI, Abdominal Pain, Belching, Bloating, Change in Bowel Habits, Change in Stool Character, Coffee Ground Emesis, Constipation, Cramping, Diarrhea, Dyspepsia, Dysphagia, Early Satiety, Excessive Flatus, Fecal Incontinence, Heartburn, Hematemesis, Hematochezia, Loose Stools, Melena, Nausea, Odynophagia, Temesmus, Vomiting, Other - Genitourinary Genitourinary: absent: As Per HPI, Change in Urinary Stream, Difficulty Urinating, Dysuria, Flank Pain, Hematuria, Pyuria, Nocturia, Urinary Incontinence, Urinary Frequency, Urinary Hesitance, Urinary Urgency, Voiding Freq/Small Amts, Freq UTI, Hx Renal/Bladder Calculi, Hx /Renal Surgery, Bladder Distension, Other - Musculoskeletal Musculoskeletal: Limited Range of Motion, Muscle Weakness, Stiffness - Integumentary Integumentary: absent: As Per HPI, Acne, Alopecia, Bleeding Lesions, Change in Hair, Change in Nails, Change in Pigmentation, Changing Lesions, Dry Skin, Erythema, Furuncle, Hirsutism, Lesions, New Lesions, Non-Healing Lesions, Parish tosensitivity, Pruritus, Rash, Skin Pain, Skin Ulcer, Sores, Striae, Swelling, Unusual Bruising, Wounds, Jaundice, Other - Neurological Neurological: Disequilibrium, Dizziness, Syncope - Psychiatric Psychiatric: absent: As Per HPI, Abnormal Sleep Pattern, Anhedonia, Anxiety, Auditory Hallucinations, Behavioral Changes, Change in Appetite, Change in Libido, Confusion, Depression, Difficulty Concentrating, Hallucinations, Homicidal Ideation, Hopelessness, Irritability, Memory Loss, Mood Swings, Panic Attacks, Paranoia, Suicidal Ideation, Visual Hallucinations, Tactile Hallucinations, Other - Endocrine Endocrine: absent: As Per HPI, Change in Body Appearance, Change in Libido, Cold Intolorance, Deepening of Voice, Excessive Sweating, Fatigue, Flushing, Heat Intolorance, Increase in Ring/Shoe/Hat Size, Palpitations, Polydipsia, Polyphagia, Polyuria, Other - Hematologic/Lymphatic Hematologic: absent: As Per HPI, Easy Bleeding, Easy Bruising, Lymphadenopathy, Other Past Patient History - Past Medical History & Family History Past Medical History?: Yes - Past Social History Smoking Status: Never Smoked - CARDIAC Hx Hypertension: Yes - NEUROLOGICAL Hx Parkinson's Disease: Yes - ENDOCRINE/METABOLIC Hx Endocrine Disorders: Yes - MUSCULOSKELETAL/RHEUMATOLOGICAL Hx Falls: Yes - PSYCHIATRIC Hx Substance Use: No - SURGICAL HISTORY Hx Coronary Artery Bypass Graft: Yes - ANESTHESIA Hx Anesthesia: Yes Hx Anesthesia Reactions: No Hx Malignant Hyperthermia: No Meds Allergies/Adverse Reactions: Allergies Allergy/AdvReac Type Severity Reaction Status Date / Time No Known Allergies Allergy Verified 05/03/15 13:05 - Medications Medications: Current Medications Carbidopa/Levodopa (Sinemet) 1 tab PO QID [facility] Last Admin: 02/15/18 14:36 Dose: 1 tab Gabapentin (Neurontin) 100 mg PO BID [facility] Insulin Human Regular (Humulin R) 0 units SC ACCU-CHECK [facility]; Protocol Last Admin: 02/15/18 11:48 Dose: 6 units Lactic Acid (Lac-Hydrin 12% Lotion (225 G)) 1 applic TOP TID [facility] Last Admin: 02/15/18 14:35 Dose: Not Given Lidocaine (Lidoderm) 1 ea TD DAILY [facility] Last Admin: 02/15/18 09:10 Dose: 1 ea Lisinopril (Zestril) 2.5 mg PO DAILY [facility] Last Admin: 02/15/18 09:10 Dose: 2.5 mg Metoprolol Succinate (Toprol Xl) 25 mg PO DAILY [facility] Last Admin: 02/13/18 11:30 Dose: 25 mg Multivitamins/Minerals (Therapeutic-M Tab) 1 tab PO DAILY [facility] Last Admin: 02/15/18 09:10 Dose: 1 tab Oxycodone/Acetaminophen (Percocet 5/325 Mg Tab) 1 tab PO Q6 PRN PRN Reason: Pain, severe (8-10) Stop: 02/18/18 11:40 Last Admin: 02/15/18 14:36 Dose: 1 tab Sitagliptin Phosphate (Januvia) 100 mg PO DAILY [facility] Last Admin: 02/15/18 09:10 Dose: 100 mg Physical Exam - Constitutional Appears: Non-toxic - Head Exam Head Exam: NORMAL INSPECTION - Eye Exam Eye Exam: Normal appearance - ENT Exam ENT Exam: Mucous Membranes Moist - Neck Exam Neck exam: Positive for: Full Rom - Respiratory Exam Respiratory Exam: Decreased Breath Sounds - Cardiovascular Exam Cardiovascular Exam: Bradycardia, REGULAR RHYTHM - GI/Abdominal Exam GI & Abdominal Exam: Normal Bowel Sounds. absent: Mass - Rectal Exam Rectal Exam: Deferred - Extremities Exam Extremities exam: Negative for: pedal edema - Back Exam Back exam: NORMAL INSPECTION - Neurological Exam Neurological exam: Alert, Oriented x3 - Psychiatric Exam Psychiatric exam: Normal Affect - Skin Skin Exam: Normal Color Results - Vital Signs Recent Vital Signs: Last Vital Signs Temp 97.3 F L 02/15/18 15:47 Pulse 70 02/15/18 15:47 Resp 20 02/15/18 15:47 BP 137/81 02/15/18 15:47 Pulse Ox 96 02/15/18 15:47 - Labs Result Diagrams: 02/12/18 21:25 02/15/18 09:38 Labs: Laboratory Results - last 24 hr 02/14/18 02/15/18 02/15/18 21:09 05:05 09:38 Sodium 139 Potassium 4.7 Chloride 101 Carbon Dioxide 29 Anion Gap 14 BUN 39 H Creatinine 1.4 Est GFR ( Amer) 59 Est GFR (Non-Af Amer) 49 POC Glucose (mg/dL) 179 H 123 H Random Glucose 157 H Calcium 9.3 02/15/18 02/15/18 02/15/18 11:33 16:09 17:44 Sodium Potassium Chloride Carbon Dioxide Anion Gap BUN Creatinine Est GFR ( Amer) Est GFR (Non-Af Amer) POC Glucose (mg/dL) 257 H 134 H 110 Random Glucose Calcium - EKG Data EKG Interpreted by: Myself Rate: Bradycardia Assessment & Plan (1) Syncope Assessment and Plan: the etiology is unclear and may be multifactorial. recommend holding betablocker. 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 He has baseline sinus bradycardia with RBBB and first degree AV bl ock. seen on his office EKG. Status: Acute (2) HTN (hypertension) Assessment and Plan: will monitor blood pressure Status: Acute (3) CAD (coronary artery disease) Assessment and Plan: s/p CABG. no angina Status: Acute
--- NOTE | 2018-02-15 20:58 | CARD ---
APPROVED REPORT Date of service: 02/15/2018 EXAM: Two-dimensional and M-mode echocardiogram with Doppler and color Doppler. Other Information Quality : AverageRhythm : NSR INDICATION Abnormal EKG/Arrhythmia 2D DIMENSIONS IVSd0.96 (0.7-1.1cm)LVDd3.20 (3.9-5.9cm) LVOT Diameter2.21 (1.8-2.4cm)PWd1.06 (0.7-1.1cm) IVSs1.26 (0.8-1.2cm)LVDs3.08 (2.5-4.0cm) FS (%) 3.6 %PWs1.30 (0.8-1.2cm) M-Mode DIMENSIONS Left Atrium (MM)3.62 (2.5-4.0cm)IVSd0.94 (0.7-1.1cm) Aortic Root3.29 (2.2-3.7cm)LVDd5.44 (4.0-5.6cm) Aortic Cusp Exc.2.15 (1.5-2.0cm)PWd0.97 (0.7-1.1cm) IVSs1.18 cmFS (%) 32 % LVDs3.71 (2.0-3.8cm)PWs1.68 cm Aortic Valve AoV Peak Xcgihxho035.6cm/sAoV VTI15.1cmAO Peak GR.4mmHg LVOT Peak Ynsdwlql52.1cm/Charlie Mean GR.2mmHgAVA (VMAX)1.46cm2 Mitral Valve MV E Ttiyllpn10.4cm/sMV DECEL [id number] A Ledrjlut06.8cm/s MV XFD18azM/A ratio0.8MVA (PHT)3.11cm2 TDI Lateral E' Peak V9.70cm/sE/Lateral E'4.4E/Medial E'0.0 Tricuspid Valve TR Peak Gwtgpthf144lm/sRAP ALOPPTGM35vdEmQU Peak Gr.19mmHg KLRW21uoQm LEFT VENTRICLE The left ventricle is normal size. There is normal left ventricular wall thickness. The left ventricular systolic function is normal. The estimated ejection fraction is 55-60% No regional wall motion abnormalities noted.. Transmitral Doppler flow pattern is Grade I-abnormal relaxation pattern. No left ventricle thrombus noted on this study. There is no ventricular septal defect visualized. There is no left ventricular aneurysm. There is no mass noted in the left ventricle. RIGHT VENTRICLE The right ventricle is normal size. There is normal right ventricular wall thickness. The right ventricular systolic function is normal. ATRIA The left atrium size is normal. The right atrium size is normal. The interatrial septum is intact with no evidence for an atrial septal defect. AORTIC VALVE The aortic valve is normal in structure. No aortic regurgitation is present. There is no aortic valvular stenosis. There is no aortic valvular vegetation. MITRAL VALVE The mitral valve is normal in structure. There is no evidence of mitral valve prolapse. There is no mitral valve stenosis. There is no mitral valve regurgitation noted. TRICUSPID VALVE The tricuspid valve is normal in structure. There is trace tricuspid valve regurgitation noted. RVSP is calculated at 29 mm Hg, There is no tricuspid valve prolapse or vegetation. There is no tricuspid valve stenosis. PULMONIC VALVE The pulmonary valve is normal in structure. There is no pulmonic valvular regurgitation. There is no pulmonic valvular stenosis. GREAT VESSELS The aortic root is normal in size. The ascending aorta is normal in size. The pulmonary artery is normal. The IVC is normal in size and collapses >50% with inspiration. PERICARDIAL EFFUSION There is no pericardial effusion. There is no pleural effusion. <Conclusion> Technically difficult study. The estimated ejection fraction is 55-60% Transmitral Doppler flow pattern is Grade I-abnormal relaxation pattern. The left atrium size is normal. There is trace tricuspid valve regurgitation noted. RVSP is calculated at 29 mm Hg,
[2018-02-16] MEDS: Insulin Regular 100 units/ml SC SCH ×2 (09:00→11:56)
[2018-02-16] MEDS: Lidocaine 5% Patch TD SCH (09:54)
[2018-02-16] MEDS: Carbidopa/Levodopa 25/250 PO SCH ×2 (09:56→14:34)
[2018-02-16] MEDS: Multivitamin With Minerals Tab PO SCH (09:57)
[2018-02-16] MEDS: Oxycodone/Acetaminophen 5/325 mg Tab PO PRN (10:18)
[2018-02-16 10:35] VITALS: RESP 18
[2018-02-16] MEDS ORDERED: Lactulose 10 gm/15 ml Syrup PO PRN (12:14)
[2018-02-16 15:42] VITALS: BP 102/60; PULSE 71; TEMP 97.8
[2018-02-17 09:50] VITALS: O2SAT 99
== END 2018-02-16 16:40 | DRG 86 ==
LOC: H.ER 20:52 → H.ERHOLD 02-13 01:29 → H.TEL 02-13 03:29 → OBSVTOIN 02-15 08:43
PROVIDERS: ADMIT Family Medicine; ATTEND Family Medicine
DX: S06.301A Unspecified focal traumatic brain injury with loss of consciousness of 30 minutes or less, initial encounter (principal); S22.42XA Multiple fractures of ribs, left side, initial encounter for closed fracture; F02.80 Dementia in other diseases classified elsewhere, unspecified severity, without behavioral disturbance, psychotic disturbance, mood disturbance, and anxiety; G20 Parkinson's disease; I44.0 Atrioventricular block, first degree; W18.39XA Other fall on same level, initial encounter; E11.9 Type 2 diabetes mellitus without complications; I10 Essential (primary) hypertension; I25.10 Atherosclerotic heart disease of native coronary artery without angina pectoris; I45.10 Unspecified right bundle-branch block; K59.00 Constipation, unspecified; Z91.81 History of falling; Z95.1 Presence of aortocoronary bypass graft; Y92.89 Other specified places as the place of occurrence of the external cause

== ENCOUNTER 2018-02-16 11:09 | Inpatient (IN) | payer MEDICARE ==
[2018-02-16 11:55] VITALS: BMI 26.1
[2018-02-16] MEDS: Carbidopa/Levodopa 25/250 PO SCH (22:08)
[2018-02-16] MEDS: Insulin Regular 100 units/ml SC SCH (22:09)
[2018-02-17] MEDS ORDERED: Lidocaine 5% Patch TD SCH (06:00)
[2018-02-17 06:34] LABS: HEMOGLOBIN 13.4 g/dL (12.0-18.0); MEAN CELL VOLUME 95.3 fl (80.0-94.0); MEAN CORPUSCULAR HEMOGLOBIN 33.1 pg (27.0-31.0); MEAN CORPUSCULAR HGB CONC 34.7 g/dL (33.0-37.0); RBC 4.06 Mil/uL (4.40-5.90); RED CELL DISTRIBUTION WIDTH 13.6 % (11.5-14.5)
[2018-02-17] MEDS: Insulin Regular 100 units/ml SC SCH ×4 (06:40→23:09)
[2018-02-17 07:03] LABS: ALB/GLOB RATIO 1.1 (1.0-2.1); ALBUMIN 3.9 g/dL (3.5-5.0); CALCIUM 9.1 mg/dL (8.4-10.2)
[2018-02-17] MEDS: Lidocaine 5% Patch TD SCH (09:11)
[2018-02-17] MEDS: Multivitamin With Minerals Tab PO SCH (09:18)
[2018-02-17] MEDS: Carbidopa/Levodopa 25/250 PO SCH ×4 (09:18→21:25)
[2018-02-17] MEDS: Oxycodone/Acetaminophen 5/325 mg Tab PO PRN ×2 (10:18→17:20)
--- NOTE | 2018-02-17 19:33 | CP.PCM.CON ---
History of Present Illness - History of Present Illness History of Present Illness: 82 year old patient with diagnosis of intracranial Hge, CAD status post 5 vessel bypass, parkinsons disease, admitted for acute rehab Review of Systems - Musculoskeletal Musculoskeletal: Muscle Weakness Past Patient History - Past Medical History & Family History Past Medical History?: Yes - Past Social History Smoking Status: Never Smoked - CARDIAC Hx Cardiac Disorders: Yes Hx Hypertension: Yes - PULMONARY Hx Respiratory Disorders: No - NEUROLOGICAL Hx Parkinson's Disease: Yes Hx Syncope: Yes - HEENT Hx HEENT Problems: No Other/Comment: uses eye glasses for reading - RENAL Hx Chronic Kidney Disease: No - ENDOCRINE/METABOLIC Hx Diabetes Mellitus Type 2: Yes - HEMATOLOGICAL/ONCOLOGICAL Hx AIDS: No Hx Human Immunodeficiency Virus (HIV): No - INTEGUMENTARY Hx Dermatological Problems: No - MUSCULOSKELETAL/RHEUMATOLOGICAL Hx Falls: Yes Hx Fractures: Yes - GASTROINTESTINAL Hx Gastrointestinal Disorders: No - GENITOURINARY/GYNECOLOGICAL Hx Genitourinary Disorders: No - PSYCHIATRIC Hx Psychophysiologic Disorder: No Hx Substance Use: No - SURGICAL HISTORY Hx Coronary Artery Bypass Graft: Yes - ANESTHESIA Hx Anesthesia: Yes Hx Anesthesia Reactions: No Hx Malignant Hyperthermia: No Has any member of the family had a problem w/ anesthesia?: No Meds Allergies/Adverse Reactions: Allergies Allergy/AdvReac Type Severity Reaction Status Date / Time No Known Allergies Allergy Verified 05/03/15 13:05 - Medications Medications: Current Medications Carbidopa/Levodopa (Sinemet) 1 tab PO QID [facility] Last Admin: 02/17/18 17:20 Dose: 1 tab Gabapentin (Neurontin) 100 mg PO Q12 [facility] Last Admin: 02/17/18 09:18 Dose: 100 mg Insulin Detemir (Levemir) 35 units SC [facility] Insulin Human Regular (Humulin R) 0 units SC ACCU-CHECK [facility]; Protocol Last Admin: 02/17/18 17:21 Dose: 4 units Lactic Acid (Lac-Hydrin 12% Lotion (225 G)) 1 applic TOP Q8 [facility] Last Admin: 02/17/18 13:30 Dose: 1 applic Lactulose (Enulose) 10 gm PO DAILY PRN PRN Reason: Constipation Lidocaine (Lidoderm) 1 ea TD 0900 [facility] Last Admin: 02/17/18 09:11 Dose: 1 ea Lisinopril (Zestril) 2.5 mg PO DAILY [facility] Last Admin: 02/17/18 09:18 Dose: 2.5 mg Multivitamins/Minerals (Therapeutic-M Tab) 1 tab PO DAILY [facility] Last Admin: 02/17/18 09:18 Dose: 1 tab Oxycodone/Acetaminophen (Percocet 5/325 Mg Tab) 1 tab PO Q6 PRN PRN Reason: Pain, (4-10) Stop: 02/19/18 17:18 Last Admin: 02/17/18 17:20 Dose: 1 tab Sitagliptin Phosphate (Januvia) 100 mg PO DAILY [facility] Last Admin: 02/17/18 09:11 Dose: 100 mg Physical Exam - Constitutional Appears: Well - Eye Exam Eye Exam: EOMI, Normal appearance Pupil Exam: NORMAL ACCOMODATION - ENT Exam ENT Exam: Mucous Membranes Moist, Normal Exam - Neck Exam Neck exam: Positive for: Normal Inspection - Respiratory Exam Respiratory Exam: Clear to Auscultation Bilateral, NORMAL BREATHING PATTERN - Cardiovascular Exam Cardiovascular Exam: REGULAR RHYTHM - GI/Abdominal Exam GI & Abdominal Exam: Normal Bowel Sounds - Rectal Exam Rectal Exam: NORMAL INSPECTION - Exam External exam: NORMAL EXTERNAL EXAM - Extremities Exam Extremities exam: Positive for: normal inspection Additional comments: both upper and lower extremities muscle strength 3/5 - Back Exam Back exam: NORMAL INSPECTION - Neurological Exam Neurological exam: Alert, CN II-XII Intact - Psychiatric Exam Psychiatric exam: Flat Affect - Skin Skin Exam: Dry, Normal Color Results - Vital Signs Recent Vital Signs: Last Vital Signs Temp 97.7 F 02/17/18 08:30 Pulse 71 02/17/18 09:18 Resp 22 02/17/18 08:30 BP 124/63 02/17/18 09:18 Pulse Ox 96 02/17/18 08:54 - Labs Result Diagrams: 02/17/18 06:10 02/17/18 06:10 Labs: Laboratory Results - last 24 hr 02/16/18 02/17/18 02/17/18 22:00 05:52 06:10 WBC 10.0 RBC 4.06 L Hgb 13.4 Hct 38.7 MCV 95.3 H MCH 33.1 H MCHC 34.7 RDW 13.6 Plt Count 161 Sodium Potassium Chloride Carbon Dioxide Anion Gap BUN Creatinine Est GFR ( Amer) Est GFR (Non-Af Amer) POC Glucose (mg/dL) 231 H 175 H Random Glucose Calcium Total Bilirubin AST ALT Alkaline Phosphatase Total Protein Albumin Globulin Albumin/Globulin Ratio 02/17/18 02/17/18 02/17/18 06:10 11:51 15:44 WBC RBC Hgb Hct MCV MCH MCHC RDW Plt Count Sodium 137 Potassium 4.6 Chloride 102 Carbon Dioxide 22 Anion Gap 18 BUN 78 H Creatinine 2.1 H Est GFR ( Amer) 37 Est GFR (Non-Af Amer) 31 POC Glucose (mg/dL) 267 H 231 H Random Glucose 199 H Calcium 9.1 Total Bilirubin 2.1 H AST 18 ALT 12 L D Alkaline Phosphatase 95 Total Protein 7.5 Albumin 3.9 Globulin 3.6 Albumin/Globulin Ratio 1.1 Assessment & Plan (1) Accidental fall Status: Acute (2) CAD (coronary artery disease) Status: Acute (3) Cerebral hemorrhage Status: Acute (4) Cerebral hemorrhage Assessment and Plan: plan for physical, occupational, rec and speech therapy covering for Dr Das, to write overall plan of care Status: Acute (5) Cervical strain Status: Acute (6) HTN (hypertension) Status: Acute (7) Head contusion Status: Acute (8) Lumbar strain Status: Acute
--- NOTE | 2018-02-17 19:37 | PCM.OPOC ---
Physiatry Overall Plan of Care - Overall Plan of Care Estimated Length of Stay in Weeks: 3 Rehab Impairment: Mobility, Gait, Cognition, Balance, Coordination Etiologic Diagnosis: Traumatic Brain Injury Rehab/Medical Prognosis: Fair - Anticipated Interventions Physical Therapy:: Yes Occupational Therapy:: Yes Speech Therapy:: Yes Recreational Therapy:: Yes - Therapy Goals Bed Mobility: Independent Ambulation: Supervision Functional Positional Changes:: Independent - Functional Outcomes Functional Outcomes: fair - Discharge Plan Identification of Barriers to Discharge: Cognition Discharge Destination: Home
--- NOTE | 2018-02-17 19:40 | CP.PCM.PN ---
Subjective - Date & Time of Evaluation Date of Evaluation: 02/17/18 Time of Evaluation: 13:00 - Subjective Subjective: no acute complaints at present Objective - Vital Signs/Intake and Output Vital Signs (last 24 hours): Temp Pulse Resp BP Pulse Ox 97.7 F 71 22 124/63 96 02/17/18 08:30 02/17/18 09:18 02/17/18 08:30 02/17/18 09:18 02/17/18 08:54 - Medications Medications: Current Medications Carbidopa/Levodopa (Sinemet) 1 tab PO QID [facility] Last Admin: 02/17/18 17:20 Dose: 1 tab Gabapentin (Neurontin) 100 mg PO Q12 [facility] Last Admin: 02/17/18 09:18 Dose: 100 mg Insulin Detemir (Levemir) 35 units SC [facility] Insulin Human Regular (Humulin R) 0 units SC ACCU-CHECK [facility]; Protocol Last Admin: 02/17/18 17:21 Dose: 4 units Lactic Acid (Lac-Hydrin 12% Lotion (225 G)) 1 applic TOP Q8 [facility] Last Admin: 02/17/18 13:30 Dose: 1 applic Lactulose (Enulose) 10 gm PO DAILY PRN PRN Reason: Constipation Lidocaine (Lidoderm) 1 ea TD 0900 [facility] Last Admin: 02/17/18 09:11 Dose: 1 ea Lisinopril (Zestril) 2.5 mg PO DAILY [facility] Last Admin: 02/17/18 09:18 Dose: 2.5 mg Multivitamins/Minerals (Therapeutic-M Tab) 1 tab PO DAILY [facility] Last Admin: 02/17/18 09:18 Dose: 1 tab Oxycodone/Acetaminophen (Percocet 5/325 Mg Tab) 1 tab PO Q6 PRN PRN Reason: Pain, (4-10) Stop: 02/19/18 17:18 Last Admin: 02/17/18 17:20 Dose: 1 tab Sitagliptin Phosphate (Januvia) 100 mg PO DAILY [facility] Last Admin: 02/17/18 09:11 Dose: 100 mg - Labs Labs: 02/17/18 06:10 02/17/18 06:10 - Constitutional Appears: Well - Eye Exam Eye Exam: EOMI, Normal appearance Pupil Exam: NORMAL ACCOMODATION, PERRL - ENT Exam ENT Exam: Mucous Membranes Moist, Normal Exam - Neck Exam Neck Exam: Normal Inspection - Respiratory Exam Respiratory Exam: Clear to Ausculation Bilateral, NORMAL BREATHING PATTERN - Cardiovascular Exam Cardiovascular Exam: REGULAR RHYTHM - GI/Abdominal Exam GI & Abdominal Exam: Soft, Normal Bowel Sounds - Rectal Exam Rectal Exam: NORMAL INSPECTION - Exam External exam: NORMAL EXTERNAL EXAM - Extremities Exam Extremities Exam: Full ROM, Normal Capillary Refill, Normal Inspection - Back Exam Back Exam: NORMAL INSPECTION - Neurological Exam Neurological Exam: Alert, Awake Neuro motor strength exam: Left Upper Extremity: 3, Right Upper Extremity: 3, Left Lower Extremity: 3, Right Lower Extremity: 3 - Psychiatric Exam Psychiatric exam: Flat Affect - Skin Skin Exam: Normal Color Assessment and Plan (1) Accidental fall Status: Acute (2) CAD (coronary artery disease) Status: Acute (3) Cerebral hemorrhage Status: Acute (4) Cerebral hemorrhage Assessment & Plan: plan for physical, occupational, rec and speech therapy range of motion, stren ghtening, transfers and gait training covering for Dr Das Status: Acute (5) Cervical strain Status: Acute (6) HTN (hypertension) Status: Acute (7) Head contusion Status: Acute (8) Lumbar strain Status: Acute
[2018-02-17] MEDS: Insulin Detemir 100 Units/ml Inj SC SCH (21:35)
[2018-02-18] MEDS: Insulin Regular 100 units/ml SC SCH ×4 (06:39→22:08)
[2018-02-18] MEDS: Oxycodone/Acetaminophen 5/325 mg Tab PO PRN ×2 (08:59→22:02)
[2018-02-18] MEDS: Carbidopa/Levodopa 25/250 PO SCH ×4 (09:00→21:48)
[2018-02-18] MEDS: Multivitamin With Minerals Tab PO SCH (09:00)
[2018-02-18] MEDS: Lactulose 10 gm/15 ml Syrup PO PRN (09:01)
[2018-02-18] MEDS: Lidocaine 5% Patch TD SCH (09:01)
--- NOTE | 2018-02-18 14:58 | CP.PCM.PN ---
Subjective - Date & Time of Evaluation Date of Evaluation: 02/18/18 Time of Evaluation: 11:00 - Subjective Subjective: no acute complaints at present Objective - Vital Signs/Intake and Output Vital Signs (last 24 hours): Temp Pulse Resp BP Pulse Ox 97.7 F 55 L 20 133/56 L 95 02/18/18 08:59 02/18/18 09:00 02/18/18 08:59 02/18/18 09:00 02/18/18 08:59 - Medications Medications: Current Medications Carbidopa/Levodopa (Sinemet) 1 tab PO QID [facility] Last Admin: 02/18/18 12:31 Dose: 1 tab Gabapentin (Neurontin) 100 mg PO Q12 [facility] Last Admin: 02/18/18 09:00 Dose: 100 mg Insulin Detemir (Levemir) 35 units SC HS [facility] Last Admin: 02/17/18 21:35 Dose: 35 units Insulin Human Regular (Humulin R) 0 units SC ACCU-CHECK [facility]; Protocol Last Admin: 02/18/18 12:31 Dose: 2 units Lactic Acid (Lac-Hydrin 12% Lotion (225 G)) 1 applic TOP Q8 [facility] Last Admin: 02/18/18 13:39 Dose: 1 applic Lactulose (Enulose) 10 gm PO DAILY PRN PRN Reason: Constipation Last Admin: 02/18/18 09:01 Dose: 10 gm Lidocaine (Lidoderm) 1 ea TD 0900 [facility] Last Admin: 02/18/18 09:01 Dose: 1 ea Lisinopril (Zestril) 2.5 mg PO DAILY [facility] Last Admin: 02/18/18 09:00 Dose: 2.5 mg Multivitamins/Minerals (Therapeutic-M Tab) 1 tab PO DAILY [facility] Last Admin: 02/18/18 09:00 Dose: 1 tab Oxycodone/Acetaminophen (Percocet 5/325 Mg Tab) 1 tab PO Q6 PRN PRN Reason: Pain, (4-10) Stop: 02/19/18 17:18 Last Admin: 02/18/18 08:59 Dose: 1 tab Sitagliptin Phosphate (Januvia) 100 mg PO DAILY [facility] Last Admin: 02/18/18 09:01 Dose: 100 mg - Labs Labs: 02/17/18 06:10 02/17/18 06:10 - Head Exam Head Exam: ATRAUMATIC, NORMAL INSPECTION, NORMOCEPHALIC - Eye Exam Eye Exam: EOMI, Normal appearance, PERRL Pupil Exam: NORMAL ACCOMODATION - ENT Exam ENT Exam: Mucous Membranes Moist, Normal Exam - Neck Exam Neck Exam: Full ROM, Normal Inspection - Respiratory Exam Respiratory Exam: Clear to Ausculation Bilateral, NORMAL BREATHING PATTERN - Cardiovascular Exam Cardiovascular Exam: REGULAR RHYTHM - GI/Abdominal Exam GI & Abdominal Exam: Soft, Normal Bowel Sounds - Rectal Exam Rectal Exam: NORMAL INSPECTION - Exam External exam: NORMAL EXTERNAL EXAM - Extremities Exam Extremities Exam: Full ROM, Normal Capillary Refill - Back Exam Back Exam: NORMAL INSPECTION - Neurological Exam Neurological Exam: Alert, Awake Neuro motor strength exam: Left Upper Extremity: 3, Right Upper Extremity: 3, Left Lower Extremity: 3, Right Lower Extremity: 3 - Psychiatric Exam Psychiatric exam: Normal Affect, Normal Mood - Skin Skin Exam: Dry Assessment and Plan (1) Accidental fall Status: Acute (2) CAD (coronary artery disease) Status: Acute (3) Cerebral hemorrhage Status: Acute (4) Cerebral hemorrhage Assessment & Plan: plan for physical, occupational and rec therapy Status: Acute (5) Cervical strain Status: Acute (6) HTN (hypertension) Status: Acute (7) Head contusion Status: Acute (8) Lumbar strain Status: Acute
[2018-02-18] MEDS: Insulin Detemir 100 Units/ml Inj SC SCH (21:48)
[2018-02-19] MEDS: Insulin Regular 100 units/ml SC SCH ×4 (07:42→22:00)
[2018-02-19] MEDS: Oxycodone/Acetaminophen 5/325 mg Tab PO PRN (08:34)
[2018-02-19] MEDS: Lidocaine 5% Patch TD SCH (08:35)
[2018-02-19] MEDS: Lactulose 10 gm/15 ml Syrup PO PRN (08:35)
[2018-02-19] MEDS: Carbidopa/Levodopa 25/250 PO SCH ×4 (08:35→21:54)
[2018-02-19] MEDS: Multivitamin With Minerals Tab PO SCH (08:36)
[2018-02-19] MEDS: AMITIZA 24 MCG PO SCH (08:37)
[2018-02-19 08:55] LABS: SQUAMOUS EPITHIAL < 1 /hpf (0-5); URINE BILIRUBIN NEGATIVE (NEGATIVE); URINE BLOOD NEGATIVE (NEGATIVE); URINE CLARITY CLEAR (Clear); URINE COLOR YELLOW (YELLOW); URINE GLUCOSE (UA) NEG (Normal); URINE LEUKOCYTE ESTERASE NEG Leu/uL (Negative); URINE PROTEIN NEGATIVE (NEGATIVE); URINE UROBILINOGEN 0.2-1.0 mg/dL (0.2-1.0)
[2018-02-19] MEDS: Insulin Detemir 100 Units/ml Inj SC SCH (21:54)
[2018-02-20] MEDS: Insulin Regular 100 units/ml SC SCH ×4 (06:27→22:15)
[2018-02-20] MEDS: Multivitamin With Minerals Tab PO SCH (08:56)
[2018-02-20] MEDS: AMITIZA 24 MCG PO SCH (08:56)
[2018-02-20] MEDS: Carbidopa/Levodopa 25/250 PO SCH ×4 (08:56→21:38)
[2018-02-20] MEDS: Lidocaine 5% Patch TD SCH (08:57)
[2018-02-20] MEDS: Insulin Detemir 100 Units/ml Inj SC SCH (21:40)
[2018-02-21] MEDS: Insulin Regular 100 units/ml SC SCH ×4 (06:23→22:26)
[2018-02-21] MEDS: Carbidopa/Levodopa 25/250 PO SCH ×4 (08:27→21:31)
[2018-02-21] MEDS: AMITIZA 24 MCG PO SCH (08:27)
[2018-02-21] MEDS: Multivitamin With Minerals Tab PO SCH (08:28)
[2018-02-21] MEDS: Lidocaine 5% Patch TD SCH (08:29)
--- NOTE | 2018-02-21 08:33 | CP.PCM.HP ---
History of Present Illness - History of Present Illness History of Present Illness: This is an 82 y/o male with hx of DM 2, Parkinsons who had a fall at home and sustained multiple left side rib fractures and noted to have cerebral hemorrhage. he was kept at telemetry unit and was maintained on pain meds. Neurology and PT was called, Repeat imaging revealed no progression of hemorrhage. He was evaluated and suggested acute rehab. Present on Admission - Present on Admission Any Indicators Present on Admission: No History of DVT/PE: No History of Uncontrolled Diabetes: Yes Urinary Catheter: No Decubitus Ulcer Present: No Review of Systems - Musculoskeletal Musculoskeletal: Abnormal Gait, Arthralgias - Neurological Neurological: Abnormal Gait, Disequilibrium, Frequent Falls Past Patient History - Past Medical History & Family History Past Medical History?: Yes - Past Social History Smoking Status: Never Smoked - CARDIAC Hx Cardiac Disorders: Yes Hx Hypertension: Yes - PULMONARY Hx Respiratory Disorders: No - NEUROLOGICAL Hx Parkinson's Disease: Yes Hx Syncope: Yes - HEENT Hx HEENT Problems: No Other/Comment: uses eye glasses for reading - RENAL Hx Chronic Kidney Disease: No - ENDOCRINE/METABOLIC Hx Diabetes Mellitus Type 2: Yes - HEMATOLOGICAL/ONCOLOGICAL Hx AIDS: No Hx Human Immunodeficiency Virus (HIV): No - INTEGUMENTARY Hx Dermatological Problems: No - MUSCULOSKELETAL/RHEUMATOLOGICAL Hx Falls: Yes Hx Fractures: Yes - GASTROINTESTINAL Hx Gastrointestinal Disorders: No - GENITOURINARY/GYNECOLOGICAL Hx Genitourinary Disorders: No - PSYCHIATRIC Hx Psychophysiologic Disorder: No Hx Substance Use: No - SURGICAL HISTORY Hx Coronary Artery Bypass Graft: Yes - ANESTHESIA Hx Anesthesia: Yes Hx Anesthesia Reactions: No Hx Malignant Hyperthermia: No Has any member of the family had a problem w/ anesthesia?: No Meds Allergies/Adverse Reactions: Allergies Allergy/AdvReac Type Severity Reaction Status Date / Time No Known Allergies Allergy Verified 05/03/15 13:05 Physical Exam - Head Exam Head Exam: NORMAL INSPECTION - Eye Exam Eye Exam: Normal appearance - Respiratory Exam Respiratory Exam: Clear to Auscultation Bilateral - Cardiovascular Exam Cardiovascular Exam: REGULAR RHYTHM - GI/Abdominal Exam GI & Abdominal Exam: Normal Bowel Sounds - Neurological Exam Neurological exam: Alert, CN II-XII Intact - Additional Findings Additional findings: tenderness on left side of chest wall from multiple rib fractures. Results - Vital Signs Recent Vital Signs: Last Vital Signs Temp 97.5 F L 10/29/18 08:19 Pulse 69 02/21/18 08:19 Resp 19 02/21/18 08:19 BP 145/75 02/21/18 08:28 Pulse Ox 100 02/21/18 08:19 - Labs Result Diagrams: 02/17/18 06:10 02/17/18 06:10 Assessment & Plan (1) Cerebral hemorrhage Status: Acute (2) Diabetes mellitus type 2 in nonobese Status: Acute (3) Accidental fall Status: Acute (4) CAD (coronary artery disease) Status: Acute (5) HTN (hypertension) Status: Acute (6) Rib fractures Status: Acute (7) Parkinson disease Status: Acute - Assessment and Plan (Free Text) Plan: start phys therapy pain meds gait and balance training neuro follow up adjust DM meds.
--- NOTE | 2018-02-21 08:38 | CP.PCM.PN ---
Subjective - Date & Time of Evaluation Date of Evaluation: 02/18/18 Time of Evaluation: 10:00 - Subjective Subjective: patient is doing a lot better Has no chest pain or SOB Has less pain on the left rib cage area. Objective - Vital Signs/Intake and Output Vital Signs (last 24 hours): Temp Pulse Resp BP Pulse Ox 97.5 F L 69 19 145/75 100 02/21/18 08:19 02/21/18 08:19 02/21/18 08:19 02/21/18 08:28 02/21/18 08:19 - Medications Medications: Current Medications Carbidopa/Levodopa (Sinemet) 1 tab PO QID [facility] Last Admin: 02/21/18 08:27 Dose: 1 tab Gabapentin (Neurontin) 100 mg PO Q12 [facility] Last Admin: 02/21/18 08:28 Dose: 100 mg Home Med (Patient's Own Medication) 1 unit PO DAILY [facility] Last Admin: 02/21/18 08:27 Dose: 1 unit Insulin Detemir (Levemir) 35 units SC HS [facility] Last Admin: 02/20/18 21:40 Dose: 35 units Insulin Human Regular (Humulin R) 0 units SC ACCU-CHECK [facility]; Protocol Last Admin: 02/21/18 06:23 Dose: Not Given Lactic Acid (Lac-Hydrin 12% Lotion (225 G)) 1 applic TOP Q8 [facility] Last Admin: 02/21/18 06:21 Dose: 1 applic Lactulose (Enulose) 10 gm PO DAILY PRN PRN Reason: Constipation Last Admin: 02/19/18 08:35 Dose: 10 gm Lidocaine (Lidoderm) 1 ea TD 0900 [facility] Last Admin: 02/21/18 08:29 Dose: 1 ea Lisinopril (Zestril) 2.5 mg PO DAILY [facility] Last Admin: 02/21/18 08:28 Dose: 2.5 mg Multivitamins/Minerals (Therapeutic-M Tab) 1 tab PO DAILY [facility] Last Admin: 02/21/18 08:28 Dose: 1 tab Oxycodone/Acetaminophen (Percocet 5/325 Mg Tab) 1 tab PO Q6 PRN PRN Reason: Pain, (4-10) Stop: 02/21/18 19:08 Last Admin: 02/19/18 08:34 Dose: 1 tab Sitagliptin Phosphate (Januvia) 100 mg PO DAILY [facility] Last Admin: 02/21/18 08:27 Dose: 100 mg - Labs Labs: 02/17/18 06:10 02/17/18 06:10 - Head Exam Head Exam: NORMAL INSPECTION - Eye Exam Eye Exam: Normal appearance - Respiratory Exam Respiratory Exam: Clear to Ausculation Bilateral - Cardiovascular Exam Cardiovascular Exam: REGULAR RHYTHM - GI/Abdominal Exam GI & Abdominal Exam: Normal Bowel Sounds Assessment and Plan (1) Cerebral hemorrhage Status: Acute (2) Diabetes mellitus type 2 in nonobese Status: Acute (3) Accidental fall Status: Acute (4) CAD (coronary artery disease) Status: Acute (5) HTN (hypertension) Status: Acute (6) Rib fractures Status: Acute (7) Parkinson disease Status: Acute - Assessment and Plan (Free Text) Plan: Cont meds Pain meds cont Pt
--- NOTE | 2018-02-21 08:40 | CP.PCM.PN ---
Subjective - Date & Time of Evaluation Date of Evaluation: 02/19/18 Time of Evaluation: 18:00 - Subjective Subjective: Patient remains stable Has minimal pain on the fracture site Doing well with PT Objective - Vital Signs/Intake and Output Vital Signs (last 24 hours): Temp Pulse Resp BP Pulse Ox 97.5 F L 69 19 145/75 100 02/21/18 08:19 02/21/18 08:19 02/21/18 08:19 02/21/18 08:28 02/21/18 08:19 - Medications Medications: Current Medications Carbidopa/Levodopa (Sinemet) 1 tab PO QID [facility] Last Admin: 02/21/18 08:27 Dose: 1 tab Gabapentin (Neurontin) 100 mg PO Q12 [facility] Last Admin: 02/21/18 08:28 Dose: 100 mg Home Med (Patient's Own Medication) 1 unit PO DAILY [facility] Last Admin: 02/21/18 08:27 Dose: 1 unit Insulin Detemir (Levemir) 35 units SC HS [facility] Last Admin: 02/20/18 21:40 Dose: 35 units Insulin Human Regular (Humulin R) 0 units SC ACCU-CHECK [facility]; Protocol Last Admin: 02/21/18 06:23 Dose: Not Given Lactic Acid (Lac-Hydrin 12% Lotion (225 G)) 1 applic TOP Q8 [facility] Last Admin: 02/21/18 06:21 Dose: 1 applic Lactulose (Enulose) 10 gm PO DAILY PRN PRN Reason: Constipation Last Admin: 02/19/18 08:35 Dose: 10 gm Lidocaine (Lidoderm) 1 ea TD 0900 [facility] Last Admin: 02/21/18 08:29 Dose: 1 ea Lisinopril (Zestril) 2.5 mg PO DAILY [facility] Last Admin: 02/21/18 08:28 Dose: 2.5 mg Multivitamins/Minerals (Therapeutic-M Tab) 1 tab PO DAILY [facility] Last Admin: 02/21/18 08:28 Dose: 1 tab Oxycodone/Acetaminophen (Percocet 5/325 Mg Tab) 1 tab PO Q6 PRN PRN Reason: Pain, (4-10) Stop: 02/21/18 19:08 Last Admin: 02/19/18 08:34 Dose: 1 tab Sitagliptin Phosphate (Januvia) 100 mg PO DAILY [facility] Last Admin: 02/21/18 08:27 Dose: 100 mg - Labs Labs: 02/17/18 06:10 02/17/18 06:10 - Head Exam Head Exam: NORMAL INSPECTION - Eye Exam Eye Exam: Normal appearance - Respiratory Exam Respiratory Exam: Clear to Ausculation Bilateral - Cardiovascular Exam Cardiovascular Exam: REGULAR RHYTHM - GI/Abdominal Exam GI & Abdominal Exam: Normal Bowel Sounds Assessment and Plan (1) Cerebral hemorrhage Status: Acute (2) Diabetes mellitus type 2 in nonobese Status: Acute (3) Accidental fall Status: Acute (4) CAD (coronary artery disease) Status: Acute (5) HTN (hypertension) Status: Acute (6) Rib fractures Status: Acute (7) Parkinson disease Status: Acute - Assessment and Plan (Free Text) Plan: Cont meds pain meds cont PT stool softener adjust meds for DM
--- NOTE | 2018-02-21 08:41 | CP.PCM.PN ---
Subjective - Date & Time of Evaluation Date of Evaluation: 02/20/18 Time of Evaluation: 18:00 - Subjective Subjective: patient remains stable Has been doing well with PT Has good sleep Has no headaches. Objective - Vital Signs/Intake and Output Vital Signs (last 24 hours): Temp Pulse Resp BP Pulse Ox 97.5 F L 69 19 145/75 100 02/21/18 08:19 02/21/18 08:19 02/21/18 08:19 02/21/18 08:28 02/21/18 08:19 - Medications Medications: Current Medications Carbidopa/Levodopa (Sinemet) 1 tab PO QID [facility] Last Admin: 02/21/18 08:27 Dose: 1 tab Gabapentin (Neurontin) 100 mg PO Q12 [facility] Last Admin: 02/21/18 08:28 Dose: 100 mg Home Med (Patient's Own Medication) 1 unit PO DAILY [facility] Last Admin: 02/21/18 08:27 Dose: 1 unit Insulin Detemir (Levemir) 35 units SC HS [facility] Last Admin: 02/20/18 21:40 Dose: 35 units Insulin Human Regular (Humulin R) 0 units SC ACCU-CHECK [facility]; Protocol Last Admin: 02/21/18 06:23 Dose: Not Given Lactic Acid (Lac-Hydrin 12% Lotion (225 G)) 1 applic TOP Q8 [facility] Last Admin: 02/21/18 06:21 Dose: 1 applic Lactulose (Enulose) 10 gm PO DAILY PRN PRN Reason: Constipation Last Admin: 02/19/18 08:35 Dose: 10 gm Lidocaine (Lidoderm) 1 ea TD 0900 [facility] Last Admin: 02/21/18 08:29 Dose: 1 ea Lisinopril (Zestril) 2.5 mg PO DAILY [facility] Last Admin: 02/21/18 08:28 Dose: 2.5 mg Multivitamins/Minerals (Therapeutic-M Tab) 1 tab PO DAILY [facility] Last Admin: 02/21/18 08:28 Dose: 1 tab Oxycodone/Acetaminophen (Percocet 5/325 Mg Tab) 1 tab PO Q6 PRN PRN Reason: Pain, (4-10) Stop: 02/21/18 19:08 Last Admin: 02/19/18 08:34 Dose: 1 tab Sitagliptin Phosphate (Januvia) 100 mg PO DAILY [facility] Last Admin: 02/21/18 08:27 Dose: 100 mg - Labs Labs: 02/17/18 06:10 02/17/18 06:10 - Head Exam Head Exam: NORMAL INSPECTION - Eye Exam Eye Exam: Normal appearance - Respiratory Exam Respiratory Exam: Clear to Ausculation Bilateral - Cardiovascular Exam Cardiovascular Exam: REGULAR RHYTHM - GI/Abdominal Exam GI & Abdominal Exam: Normal Bowel Sounds - Neurological Exam Neurological Exam: Awake, Oriented x3 Assessment and Plan (1) Cerebral hemorrhage Status: Acute (2) Diabetes mellitus type 2 in nonobese Status: Acute (3) Accidental fall Status: Acute (4) CAD (coronary artery disease) Status: Acute (5) HTN (hypertension) Status: Acute (6) Rib fractures Status: Acute (7) Parkinson disease Status: Acute - Assessment and Plan (Free Text) Plan: Cont meds Cont tx Cont PT pain meds
[2018-02-21 10:14] LABS: ALB/GLOB RATIO 1.1 (1.0-2.1); ALBUMIN 4.2 g/dL (3.5-5.0); ALT/SGPT 14 U/L (21-72); AST/SGOT 21 U/L (17-59); BLOOD UREA NITROGEN 52 mg/dl (9-20); CALCIUM 9.4 mg/dL (8.4-10.2); GFR NON-AFRICAN AMERICAN 53
[2018-02-21] MEDS: Oxycodone/Acetaminophen 5/325 mg Tab PO PRN (11:31)
--- NOTE | 2018-02-21 12:27 | CP.PCM.PN ---
Subjective - Date & Time of Evaluation Date of Evaluation: 02/19/18 Time of Evaluation: 19:00 - Subjective Subjective: no acute complaints at present Objective - Vital Signs/Intake and Output Vital Signs (last 24 hours): Temp Pulse Resp BP Pulse Ox 97.5 F L 69 19 145/75 100 02/21/18 08:19 02/21/18 08:19 02/21/18 08:19 02/21/18 08:28 02/21/18 08:19 - Medications Medications: Current Medications Carbidopa/Levodopa (Sinemet) 1 tab PO QID [facility] Last Admin: 02/21/18 08:27 Dose: 1 tab Gabapentin (Neurontin) 100 mg PO Q12 [facility] Last Admin: 02/21/18 08:28 Dose: 100 mg Home Med (Patient's Own Medication) 1 unit PO DAILY [facility] Last Admin: 02/21/18 08:27 Dose: 1 unit Insulin Detemir (Levemir) 35 units SC [facility] Last Admin: 02/20/18 21:40 Dose: 35 units Insulin Human Regular (Humulin R) 0 units SC ACCU-CHECK [facility]; Protocol Last Admin: 02/21/18 06:23 Dose: Not Given Lactic Acid (Lac-Hydrin 12% Lotion (225 G)) 1 applic TOP Q8 [facility] Last Admin: 02/21/18 06:21 Dose: 1 applic Lactulose (Enulose) 10 gm PO DAILY PRN PRN Reason: Constipation Last Admin: 02/19/18 08:35 Dose: 10 gm Lidocaine (Lidoderm) 1 ea TD 0900 [facility] Last Admin: 02/21/18 08:29 Dose: 1 ea Lisinopril (Zestril) 2.5 mg PO DAILY [facility] Last Admin: 02/21/18 08:28 Dose: 2.5 mg Multivitamins/Minerals (Therapeutic-M Tab) 1 tab PO DAILY [facility] Last Admin: 02/21/18 08:28 Dose: 1 tab Oxycodone/Acetaminophen (Percocet 5/325 Mg Tab) 1 tab PO Q6 PRN PRN Reason: Pain, (4-10) Stop: 02/24/18 08:48 Last Admin: 02/21/18 11:31 Dose: 1 tab Sitagliptin Phosphate (Januvia) 100 mg PO DAILY [facility] Last Admin: 02/21/18 08:27 Dose: 100 mg - Labs Labs: 02/17/18 06:10 02/21/18 09:40 - Constitutional Appears: Well - Head Exam Head Exam: ATRAUMATIC, NORMAL INSPECTION, NORMOCEPHALIC - Eye Exam Eye Exam: EOMI, Normal appearance, PERRL Pupil Exam: NORMAL ACCOMODATION, PERRL - ENT Exam ENT Exam: Mucous Membranes Moist, Normal Exam - Neck Exam Neck Exam: Normal Inspection - Respiratory Exam Respiratory Exam: Clear to Ausculation Bilateral - Cardiovascular Exam Cardiovascular Exam: REGULAR RHYTHM - GI/Abdominal Exam GI & Abdominal Exam: Soft, Normal Bowel Sounds - Rectal Exam Rectal Exam: NORMAL INSPECTION - Exam External exam: NORMAL EXTERNAL EXAM - Extremities Exam Extremities Exam: Normal Capillary Refill, Normal Inspection - Back Exam Back Exam: NORMAL INSPECTION - Neurological Exam Neurological Exam: Alert, Awake - Psychiatric Exam Psychiatric exam: Normal Affect - Skin Skin Exam: Dry, Normal Color Assessment and Plan (1) Accidental fall Status: Acute (2) CAD (coronary artery disease) Status: Acute (3) Cerebral hemorrhage Status: Acute (4) Cerebral hemorrhage Assessment & Plan: to continue with present therapy program, pt, ot rce and St. Status: Acute (5) Cervical strain Status: Acute (6) HTN (hypertension) Status: Acute (7) Head contusion Status: Acute (8) Lumbar strain Status: Acute
[2018-02-21] MEDS: Albuterol-Ipratrop 3 mg / 0.5 (3 ml) UD INH SCH ×2 (14:53→19:50)
--- NOTE | 2018-02-21 15:52 | RAD ---
Date of service: 02/21/2018 HISTORY: Wheezing COMPARISON: 02/12/2018. 02/12/2018 CT thorax TECHNIQUE: Chest PA and lateral FINDINGS: LUNGS: Stable atelectatic changes/scarring in both lower lobes. PLEURA: No significant pleural effusion identified. No pneumothorax apparent. CARDIOVASCULAR: No aortic atherosclerotic calcification present. No radiographic findings to suggest acute or significant cardiovascular disease. Incidental Finding(s): Postoperative changes related to sternotomy. No pulmonary vascular congestion. OSSEOUS STRUCTURES: No significant abnormalities. VISUALIZED UPPER ABDOMEN: Normal. OTHER FINDINGS: None. IMPRESSION: No significant interval change compared to the prior examination(s).
[2018-02-21] MEDS: Insulin Detemir 100 Units/ml Inj SC SCH (21:30)
[2018-02-22] MEDS: Insulin Regular 100 units/ml SC SCH ×4 (07:27→22:23)
[2018-02-22] MEDS: Albuterol-Ipratrop 3 mg / 0.5 (3 ml) UD INH SCH ×3 (07:51→19:12)
[2018-02-22] MEDS: Carbidopa/Levodopa 25/250 PO SCH ×4 (08:39→21:18)
[2018-02-22] MEDS: AMITIZA 24 MCG PO SCH (08:40)
[2018-02-22] MEDS: Multivitamin With Minerals Tab PO SCH (08:40)
[2018-02-22] MEDS: Lidocaine 5% Patch TD SCH (08:40)
--- NOTE | 2018-02-22 12:55 | CP.PCM.PN ---
Subjective - Date & Time of Evaluation Date of Evaluation: 02/22/18 Time of Evaluation: 11:00 - Subjective Subjective: patient seen and examined at bedside. no acute events overnight. patient states with cough that started one day ago, continues with occasional pain of left rib. no other complaints offered at this time. no f/c/n/v/d/c. Objective - Vital Signs/Intake and Output Vital Signs (last 24 hours): Temp Pulse Resp BP Pulse Ox 97.9 F 75 19 124/83 96 02/22/18 08:58 02/22/18 08:58 02/22/18 08:58 02/22/18 08:58 02/22/18 08:32 - Medications Medications: Current Medications Albuterol/Ipratropium (Duoneb 3 Mg/0.5 Mg (3 Ml) Ud) 3 ml INH RTID [facility] Last Admin: 02/22/18 07:51 Dose: Not Given Carbidopa/Levodopa (Sinemet) 1 tab PO QID [facility] Last Admin: 02/22/18 08:39 Dose: 1 tab Gabapentin (Neurontin) 100 mg PO Q12 [facility] Last Admin: 02/22/18 08:39 Dose: 100 mg Guaifenesin (Mucinex La) 600 mg PO Q12 [facility] Home Med (Patient's Own Medication) 1 unit PO DAILY [facility] Last Admin: 02/22/18 08:40 Dose: 1 unit Insulin Detemir (Levemir) 35 units SC HS [facility] Last Admin: 02/21/18 21:30 Dose: 35 units Insulin Human Regular (Humulin R) 0 units SC ACCU-CHECK [facility]; Protocol Last Admin: 02/22/18 07:27 Dose: Not Given Lactic Acid (Lac-Hydrin 12% Lotion (225 G)) 1 applic TOP Q8 [facility] Last Admin: 02/22/18 06:15 Dose: 1 applic Lactulose (Enulose) 10 gm PO DAILY PRN PRN Reason: Constipation Last Admin: 02/19/18 08:35 Dose: 10 gm Lidocaine (Lidoderm) 1 ea TD 0900 [facility] Last Admin: 02/22/18 08:40 Dose: 1 ea Lisinopril (Zestril) 2.5 mg PO DAILY [facility] Last Admin: 02/22/18 08:39 Dose: 2.5 mg Multivitamins/Minerals (Therapeutic-M Tab) 1 tab PO DAILY [facility] Last Admin: 02/22/18 08:40 Dose: 1 tab Oxycodone/Acetaminophen (Percocet 5/325 Mg Tab) 1 tab PO Q6 PRN PRN Reason: Pain, (4-10) Stop: 02/24/18 08:48 Last Admin: 02/21/18 11:31 Dose: 1 tab Sitagliptin Phosphate (Januvia) 100 mg PO DAILY [facility] Last Admin: 02/22/18 08:40 Dose: 100 mg - Labs Labs: 02/17/18 06:10 02/21/18 09:40 - Constitutional Appears: Well, Non-toxic, No Acute Distress - Head Exam Head Exam: NORMAL INSPECTION - Eye Exam Eye Exam: Normal appearance - Neck Exam Neck Exam: Normal Inspection - Respiratory Exam Respiratory Exam: Rhonchi, NORMAL BREATHING PATTERN - Cardiovascular Exam Cardiovascular Exam: +S1, +S2 - GI/Abdominal Exam GI & Abdominal Exam: Soft, Normal Bowel Sounds - Extremities Exam Extremities Exam: Normal Inspection - Neurological Exam Neurological Exam: Alert, Awake - Psychiatric Exam Psychiatric exam: Normal Affect, Normal Mood - Skin Skin Exam: Normal Color, Warm Assessment and Plan - Assessment and Plan (Free Text) Assessment: 82 y/o male with hx of DM 2, Parkinsons who had a fall at home and sustained multiple left side rib fractures and noted to have cerebral hemorrhage that did not show progression. currently in acute rehab for PT. continue PT/OT continue meds as prescribed obtain CXR start duonebs and mucinex prn
[2018-02-22] MEDS: guaiFENesin 600 mg ER Tab PO SCH ×2 (13:14→21:09)
--- NOTE | 2018-02-22 13:22 | PCM.PSYTMC ---
Acute Rehab Team Conference - - Vital Signs: Vital Signs (Last 8 Hours): Vital Signs 02/22/18 02/22/18 02/22/18 08:32 08:39 08:58 Temperature 97.9 F 97.9 F Pulse Rate 75 75 Respiratory 19 19 Rate Blood Pressure 124/83 124/83 124/83 O2 Sat by Pulse 96 Oximetry Pain: 0 - Precautions: Precautions: Fall Prevention - Medications/Other Issues: Comment: - (+) Wheezing during therapy plus tends to desaturate during acitivities. Dr. Prabhakar aware, CXR done, no changes. Started on [place] Duoneb and Incentive Spirometry. - Educated on deep breathing and coughing exercises . - Consults: Comment: Dr. Das - Toileting: Toileting: Dependent - Bladder Management: Bladder Pattern: Normal Voiding Method: Toilet, Urinal Bladder Management: Supervision Other Intervention:: 0 - Transfers: Transfers: Maximal Assistance - ADL's: ADL's: Maximal Assistance - Pain Management: Other Intervention:: Percocet PRN, Lidoderm Patch daily. - Patient/Family Teaching: Other Intervention:: Care post TBI, Safety Precations, Pain management, Deep breathing and coughing exercises - Goals/Time Frame: Comment: Per multidisciplinary care plan and goals - Provider: Registered Nurse:: Taylor Gaytan Physical Therapy - Bed Mobility Bed Mobility: Moderate Assistance - Transfers Wheelchair to Mat: Moderate Assistance Sit to Stand: Moderate Assistance - Ambulation Level of Assistance: Verbal Cues, Contact Guard Distance (ft.): 125 Assistive Devices: Rolling Walker - Stair Negotiation Stairs: Level of Assistance: Not Tested - Standing Balance Static Stand: Supervision - Pain Pain (assessed during therapy session): 8 Comment: L ribs - Insight/Carryover Insight/Carryover: Fair - Patient/Family Education Comment: safety, deep breathing exercises - Assessment/Plan Assessment: Pt participated in 90 minute PT tx session focusing on BLE strengthening exercises, balance and endurance activites, and functional mobility training. Howie YUAN order to place pt on supplemental O2 if SpO2 < 93%. Educated pt on deep breathing exercises throughout session. Pt able to ambulate wtih RW and CGA, requires mod A for transfers . Pt limited by L rib pain. Pt will continue to benefit from skilled PT intervention to address deficits, reduce fall risk, and maximize functional independence. - Goals Tiimeframe: 3 weeks Goals: Sit < > supine with S. Sit < > stand transfers with RW and S. Pt will ambulate 150 ft with RW and S - Provider Physical Therapist:: Kimberlee Huber License Number:: [id number] Occupational Therapy - Arousal/Attention/Orientation Level of Consciousness: Awake, Alert Patient Orientation: Person, Place, Time Assessment Comment: -impaired insight, judgement regarding limitations & potential fall risk. -impaired safety awareness. -increased overall pain in L rib, back and B knees. -increased SOB & wheezing and desaturation with activity--to 83-84% on room air, at rest 92-97 % fluctuates - ADL/IADL Self Feeding: Independent, Set-up Help Grooming: Supervision, Verbal Cues, Set-up Help Dressing-Upper Ext: Supervision, Verbal Cues, Set-up Help, Minimal Assistance Dressing-Lower Ext: Verbal Cues, Set-up Help, Maximum Assistance Comment: functional status varies with pain level, respiratory function, rigidity & overall energy level - Sitting Balance Static Sitting: Supervision Dynamic Sitting: Reaches across midline, Reaches out of base of support, Reaches within base of support, Minimal Assistance Comment: seated unsuppported at edge of bed more so due to increase L rib/back pain & SOB/wheezing - Transfers Wheelchair to Bed Transfers: Verbal Cues, Set-up Help, Moderate Assistance Toilet Transfers: Verbal Cues, Set-up Help, Moderate Assistance Comment: constant verbal/tactile cues to initiate, to engage, to flex @ trunk, place BLES/BUES properly for safety - Wheelchair Management Level of Assistance: Verbal Cues, Set-up Help, Minimal Assistance Distance (ft.): 100 - Upper Extremity Status Right Upper Extremity Comment: AROM is WFLs Left Upper Extremity Comment: AROM is WFLS - Pain Pain (assessed during therapy session): 9 Alleviating Techniques: Medication, Distraction, Inactivity Comment: -low back. -L rib area. -B knees. Pt levl to 11/02 after pain meds--percocet - Insight/Carryover Insight/Carryover: Fair - Patient/Family Education Comment: -adls/transfers/mobility training--further training needed. -caregiver ed re: pt's limitation, goals and likely need 24 hour care upon dc from acute rehab. -w/c propulsion/management. -rehab/OT goals, plan of care. -encourage adl participation, toileting. -review use of call arriaga for safety - Assessment/Plan Assessment: Pt is a 82 year old bilingual(Ukrainian/Thai) male with dx: intracranial hemorrhage. *Precautions: falls(w/c alarm), cardiac, impaired cognition/memory, impaired respiratory funtions(rib pain/wheezing). Pt limited by impaired insight/judgement/memory, impaired postural control, impaired standing/sitting postural alignment/balance/tolerance, impaired activtity tolerance, ++L rib pain/back & B knee pain, impaired safety awareness, impaired knowledge of adaptive/compensatory strategies, impaired respiratory function & impaired overall strength --which greatly impact on function in self care, transfers & mobility. Pt with increased pain in B knees, low back, L rib/torso along with increased shortness of breath thus needs greater assist with self care, bed mobility, transfers, sit<->stand. Pt with decreased pain to 7/10 35 mins after taking meds. Pt will continue to benefit from skilled OT to address above impairment areas to maxmize function in self care, transfers & mobility. Pt may benefit from respiratory therapy and incentive spirometer to improve pulmonary function so can complete tasks with greater ease. Pt will likely need 24 hour care at home 2' multiple comorbidities & high fall risk/hx of falls OR JOSEPHINE pending progress in acute rehab. - Goals Timeframe: 1 week Comment: *GROOMING: I/setup seated. *UPPER BODY DRESSING: S/setup seated in w/c. *LOWER BODY DRESSING: Pt to don pants, B socks with moderate assist & verbal cues. *TOILETING: moderate assist and verbal cues steadying with RW, grab bar prn. *TRANSFERS:<->bed, commode, w/c, & shower bench Min assist and verbal cues. *W/C PROPULSION: 100 feet with Supervision, manage B bbarakes with ClosE S for safety. *BATHING: moderate assist & verbal cues seated - Provider Occupational Therapist:: Shobha Archibald License Number: [id number] Speech Therapy - Consult Information Patient on Program: Yes Medical Diagnosis: ICH; Parkinsons disease Treatment Diagnosis: -moderate to severe dysphonia. -mild dysarthria. -mild cognitive linguistic deficits - Assessment Memory Impairment: Mild Speech/Articulation Impairment: Moderate Comment: moderate-severe dysphonia; mild dysarthria - Plan Assessment: Abraham Dickens presents with 1.) moderate-severe dysphonia characterized by breathy, hoarse vocal quality with periods of aphonia and pitch breaks; 2.) mild dysarthria characterized by impaired articulatory precision at the sentence level; and 3.) mild cognitive-linguistic deficits characterized by impaired short-term recall and word retrieval. Pt and family reported that vocal hoarseness is worsened since admission to hospital and pt states "It bothers me that people don't understand me". He participates well in therapy and would benefit from continued ST for improved vocal quality, intelligibility, and cogn itive-linguistic skills. Plan: Continue Speech/Language Therapy Frequency: 3-5 times per week Duration: 1 week Goals/Timeframe: Please see progress note dated 02/21/18 for updated goals/POC Recommendations: Continue ST 3-5x/week - Provider Therapist: Sierra Berry License Number: [id number] Recreational Therapy - Participation Participation: Participates in Individual and/or Group Sessions - Socialization Level of Socialization: Initiates/interacts freely with care givers and peer - Diversional Time Diversional Time: enjoys playing [employer], watching television - Assessment Assessment/Plan: Pt is agreeable to participate in recreation therapy sessions following encouragement. Pt enjoys participating in domi[employer]hunt task as he can recall task rules independently. For any new leisure tasks that pt is oriented to, pt requires min-mod verbal cues for direction following and carryover of task rules. Pt's barriers to participation is pain and/or fatigue. However, provide pt with rest breaks and deep breathing in between rounds of leisure tasks. Pt will continue to benefit from participating in recreation therapy sessions throughout stay on unit. Problems Currently Limiting Participation: Pt will be encouraged to participate in 1:1 and group recreation therapy sessions 3-5x week to improve direction following, command following, leisure awareness level, attention to task, and divert pt from pain. Goals and Time Frame: Pt will be encouraged to participate in 1:1 and group recreation therapy sessions 3-5x week to improve direction following, command following, leisure awareness level, attention to task, and divert pt from pain. Nutrition - Current Diet Current Diet/Supplement/Feedings: Moderate consistent CHO heart healthy diet - Appetite Percent Meal Consumed: 50-74% - Assessment/Goals/Time Frame Assessments/Goals/Time Frame: Pt at moderate nutritional risk. goals: 1. Pt to consume 75-100% of meals. 2. Blood glucoses to be between 70-180 mg/dl. Follow-up due on 02/24/2018 - Provider Provider: Abigail Maria Case Management - Discharge Plan Discharge Plan: Home with significant other/family Rehabilitation Plan - Treatment Plan Treatment Plan: Physical Therapy, Occupational Therapy, Speech, Dietary, Patient/Family Education - Discharge Plan Discharge to: Home
--- NOTE | 2018-02-22 16:39 | CP.PCM.PN ---
Subjective - Date & Time of Evaluation Date of Evaluation: 02/22/18 Time of Evaluation: 16:37 - Subjective Subjective: Abraham was born 1935 and was admitted secondary to ICH. CAD status post 5 vessel bypass, parkinsons disease, admitted for acute rehab Pain is present in the ribs denies fever or BURK continue current care Objective - Vital Signs/Intake and Output Vital Signs (last 24 hours): Temp Pulse Resp BP Pulse Ox 97.9 F 75 19 124/83 96 02/22/18 08:58 02/22/18 08:58 02/22/18 08:58 02/22/18 08:58 02/22/18 08:32 - Medications Medications: Current Medications Albuterol/Ipratropium (Duoneb 3 Mg/0.5 Mg (3 Ml) Ud) 3 ml INH RTID [facility] Last Admin: 02/22/18 13:15 Dose: 3 ml Carbidopa/Levodopa (Sinemet) 1 tab PO QID [facility] Last Admin: 02/22/18 13:14 Dose: 1 tab Gabapentin (Neurontin) 100 mg PO Q12 [facility] Last Admin: 02/22/18 08:39 Dose: 100 mg Guaifenesin (Mucinex La) 600 mg PO Q12 [facility] Last Admin: 02/22/18 13:14 Dose: 600 mg Home Med (Patient's Own Medication) 1 unit PO DAILY [facility] Last Admin: 02/22/18 08:40 Dose: 1 unit Insulin Detemir (Levemir) 35 units SC HS [facility] Last Admin: 02/21/18 21:30 Dose: 35 units Insulin Human Regular (Humulin R) 0 units SC ACCU-CHECK [facility]; Protocol Last Admin: 02/22/18 11:45 Dose: Not Given Lactic Acid (Lac-Hydrin 12% Lotion (225 G)) 1 applic TOP Q8 [facility] Last Admin: 02/22/18 13:16 Dose: 1 applic Lactulose (Enulose) 10 gm PO DAILY PRN PRN Reason: Constipation Last Admin: 02/19/18 08:35 Dose: 10 gm Lidocaine (Lidoderm) 1 ea TD 0900 [facility] Last Admin: 02/22/18 08:40 Dose: 1 ea Lisinopril (Zestril) 2.5 mg PO DAILY [facility] Last Admin: 02/22/18 08:39 Dose: 2.5 mg Multivitamins/Minerals (Therapeutic-M Tab) 1 tab PO DAILY [facility] Last Admin: 02/22/18 08:40 Dose: 1 tab Oxycodone/Acetaminophen (Percocet 5/325 Mg Tab) 1 tab PO Q6 PRN PRN Reason: Pain, (4-10) Stop: 02/24/18 08:48 Last Admin: 02/21/18 11:31 Dose: 1 tab Sitagliptin Phosphate (Januvia) 100 mg PO DAILY [facility] Last Admin: 02/22/18 08:40 Dose: 100 mg - Labs Labs: 02/17/18 06:10 02/21/18 09:40
[2018-02-22] MEDS: Insulin Detemir 100 Units/ml Inj SC SCH (21:21)
[2018-02-23] MEDS: Insulin Regular 100 units/ml SC SCH ×4 (06:04→23:00)
[2018-02-23] MEDS: Albuterol-Ipratrop 3 mg / 0.5 (3 ml) UD INH SCH ×3 (07:28→19:13)
[2018-02-23] MEDS: Carbidopa/Levodopa 25/250 PO SCH ×4 (09:06→21:33)
[2018-02-23] MEDS: AMITIZA 24 MCG PO SCH (09:06)
[2018-02-23] MEDS: Lidocaine 5% Patch TD SCH (09:07)
[2018-02-23] MEDS: Multivitamin With Minerals Tab PO SCH (09:07)
[2018-02-23] MEDS: guaiFENesin 600 mg ER Tab PO SCH ×2 (09:07→21:33)
[2018-02-23] MEDS: Insulin Detemir 100 Units/ml Inj SC SCH (22:25)
[2018-02-24] MEDS: Insulin Regular 100 units/ml SC SCH ×4 (06:45→22:55)
[2018-02-24] MEDS: Albuterol-Ipratrop 3 mg / 0.5 (3 ml) UD INH SCH ×3 (07:35→19:21)
[2018-02-24] MEDS ORDERED: Albuterol-Ipratrop 3 mg / 0.5 (3 ml) UD ONE (07:43)
[2018-02-24] MEDS: Carbidopa/Levodopa 25/250 PO SCH ×4 (08:28→21:25)
[2018-02-24] MEDS: Oxycodone/Acetaminophen 5/325 mg Tab PO PRN (08:28)
[2018-02-24] MEDS: guaiFENesin 600 mg ER Tab PO SCH ×2 (08:28→21:25)
[2018-02-24] MEDS: AMITIZA 24 MCG PO SCH (08:29)
[2018-02-24] MEDS: Multivitamin With Minerals Tab PO SCH (08:29)
[2018-02-24] MEDS: Lidocaine 5% Patch TD SCH (08:29)
--- NOTE | 2018-02-24 18:08 | CP.PCM.PN ---
Subjective - Date & Time of Evaluation Date of Evaluation: 02/24/18 Time of Evaluation: 10:30 - Subjective Subjective: 82 y/o m seen and examined with Dr Alex by bedside. Pt reports feeling well, with NO acute complaints. Pt afebrile, tolerating PO. Pt had a sugar level of 43 overnight. Objective - Vital Signs/Intake and Output Vital Signs (last 24 hours): Temp Pulse Resp BP Pulse Ox 97.8 F 79 22 150/74 97 02/24/18 08:08 02/24/18 08:29 02/24/18 08:08 02/24/18 08:29 02/24/18 08:08 - Medications Medications: Current Medications Albuterol/Ipratropium (Duoneb 3 Mg/0.5 Mg (3 Ml) Ud) 3 ml INH RTID [facility] Last Admin: 02/24/18 13:47 Dose: 3 ml Carbidopa/Levodopa (Sinemet) 1 tab PO QID [facility] Last Admin: 02/24/18 17:14 Dose: 1 tab Gabapentin (Neurontin) 100 mg PO Q12 [facility] Last Admin: 02/24/18 08:28 Dose: 100 mg Guaifenesin (Mucinex La) 600 mg PO Q12 [facility] Last Admin: 02/24/18 08:28 Dose: 600 mg Home Med (Patient's Own Medication) 1 unit PO DAILY [facility] Last Admin: 02/24/18 08:29 Dose: 1 unit Insulin Detemir (Levemir) 30 units SC HS [facility] Insulin Human Regular (Humulin R) 0 units SC ACCU-CHECK [facility]; Protocol Last Admin: 02/24/18 16:48 Dose: Not Given Lactic Acid (Lac-Hydrin 12% Lotion (225 G)) 1 applic TOP Q8 [facility] Last Admin: 02/24/18 13:29 Dose: 1 applic Lactulose (Enulose) 10 gm PO DAILY PRN PRN Reason: Constipation Last Admin: 02/19/18 08:35 Dose: 10 gm Lidocaine (Lidoderm) 1 ea TD 0900 [facility] Last Admin: 02/24/18 08:29 Dose: 1 ea Lisinopril (Zestril) 2.5 mg PO DAILY [facility] Last Admin: 02/24/18 08:29 Dose: 2.5 mg Multivitamins/Minerals (Therapeutic-M Tab) 1 tab PO DAILY [facility] Last Admin: 02/24/18 08:29 Dose: 1 tab Oxycodone/Acetaminophen (Percocet 5/325 Mg Tab) 1 tab PO Q6 PRN PRN Reason: Pain, (4-10) Stop: 02/27/18 08:48 Last Admin: 02/24/18 08:28 Dose: 1 tab Sitagliptin Phosphate (Januvia) 100 mg PO DAILY [facility] Last Admin: 02/24/18 08:28 Dose: 100 mg - Labs Labs: 02/17/18 06:10 02/21/18 09:40 - Constitutional Appears: No Acute Distress - Head Exam Head Exam: NORMAL INSPECTION - Eye Exam Eye Exam: EOMI - ENT Exam ENT Exam: Mucous Membranes Dry - Neck Exam Neck Exam: Full ROM - Respiratory Exam Respiratory Exam: Clear to Ausculation Bilateral, NORMAL BREATHING PATTERN - Cardiovascular Exam Cardiovascular Exam: REGULAR RHYTHM, +S1, +S2 - GI/Abdominal Exam GI & Abdominal Exam: Soft. absent: Guarding, Rigid, Tenderness - Neurological Exam Neurological Exam: Alert, Awake, Oriented x3 Assessment and Plan (1) Diabetes mellitus type 2 in nonobese Status: Chronic (2) Parkinson disease Status: Chronic (3) CAD (coronary artery disease) Status: Chronic (4) Cerebral hemorrhage Status: Acute (5) HTN (hypertension) Status: Chronic - Assessment and Plan (Free Text) Plan: --Will decrease Levemir to 30 units HS. --Will f/u sugar levels --Continue physical therapy. --Continue plan as ordered.
[2018-02-24] MEDS ORDERED: Insulin Detemir 100 Units/ml Inj SC SCH (22:00)
[2018-02-25] MEDS: Insulin Regular 100 units/ml SC SCH ×4 (07:20→23:25)
[2018-02-25] MEDS ORDERED: Glucagon Recombinant 1 mg Inj IM PRN (07:20)
[2018-02-25] MEDS ORDERED: Dextrose 50% SYRINGE Inj (50 ml) IV PRN (07:20)
[2018-02-25] MEDS: Albuterol-Ipratrop 3 mg / 0.5 (3 ml) UD INH SCH ×3 (08:11→19:53)
[2018-02-25] MEDS: Carbidopa/Levodopa 25/250 PO SCH ×4 (08:15→21:14)
[2018-02-25] MEDS: AMITIZA 24 MCG PO SCH (08:15)
[2018-02-25] MEDS: Multivitamin With Minerals Tab PO SCH (08:15)
[2018-02-25] MEDS: Lidocaine 5% Patch TD SCH (08:16)
[2018-02-25] MEDS: guaiFENesin 600 mg ER Tab PO SCH ×2 (08:16→21:14)
[2018-02-25] MEDS: Oxycodone/Acetaminophen 5/325 mg Tab PO PRN (12:18)
--- NOTE | 2018-02-25 19:54 | CP.PCM.PN ---
Subjective - Date & Time of Evaluation Date of Evaluation: 02/25/18 Time of Evaluation: 19:53 - Subjective Subjective: Patient seen in the room in good spirits denies sob/cp has still left ribcage pain but tolerable Lidoderm patch on at this time continue current care Objective - Vital Signs/Intake and Output Vital Signs (last 24 hours): Temp Pulse Resp BP Pulse Ox 96.8 F L 61 20 143/76 98 02/25/18 07:35 02/25/18 08:56 02/25/18 07:35 02/25/18 08:16 02/25/18 08:56 - Medications Medications: Current Medications Albuterol/Ipratropium (Duoneb 3 Mg/0.5 Mg (3 Ml) Ud) 3 ml INH RTID [facility] Last Admin: 02/25/18 14:24 Dose: Not Given Carbidopa/Levodopa (Sinemet) 1 tab PO QID [facility] Last Admin: 02/25/18 17:12 Dose: 1 tab Dextrose (Dextrose 50% Inj) 0 ml IV STAT PRN; Protocol PRN Reason: Hypoglycemia Protocol Dextrose (Glutose 15) 0 gm PO ONCE PRN; Protocol PRN Reason: Hypoglycemia Protocol Gabapentin (Neurontin) 100 mg PO Q12 [facility] Last Admin: 02/25/18 08:16 Dose: 100 mg Glucagon (Glucagen Diagnostic Kit) 0 mg IM STAT PRN; Protocol PRN Reason: Hypoglycemia Protocol Guaifenesin (Mucinex La) 600 mg PO Q12 [facility] Last Admin: 02/25/18 08:16 Dose: 600 mg Home Med (Patient's Own Medication) 1 unit PO DAILY [facility] Last Admin: 02/25/18 08:15 Dose: 1 unit Ibuprofen (Motrin Tab) 600 mg PO Q6 [facility] Last Admin: 02/25/18 17:11 Dose: 600 mg Insulin Detemir (Levemir) 20 units SC HS [facility] Insulin Human Regular (Humulin R) 0 units SC ACCU-CHECK [facility]; Protocol Last Admin: 02/25/18 16:50 Dose: Not Given Lactic Acid (Lac-Hydrin 12% Lotion (225 G)) 1 applic TOP Q8 [facility] Last Admin: 02/25/18 13:11 Dose: 1 applic Lactulose (Enulose) 10 gm PO DAILY PRN PRN Reason: Constipation Last Admin: 02/19/18 08:35 Dose: 10 gm Lidocaine (Lidoderm) 1 ea TD 0900 [facility] Last Admin: 02/25/18 08:16 Dose: 1 ea Lisinopril (Zestril) 2.5 mg PO DAILY [facility] Last Admin: 02/25/18 08:16 Dose: 2.5 mg Multivitamins/Minerals (Therapeutic-M Tab) 1 tab PO DAILY [facility] Last Admin: 02/25/18 08:15 Dose: 1 tab Oxycodone/Acetaminophen (Percocet 5/325 Mg Tab) 1 tab PO Q6 PRN PRN Reason: Pain, (4-10) Stop: 02/27/18 08:48 Last Admin: 02/25/18 12:18 Dose: 1 tab Pantoprazole Sodium (Protonix Ec Tab) 20 mg PO DAILY [facility] Sitagliptin Phosphate (Januvia) 100 mg PO DAILY [facility] Last Admin: 02/25/18 08:15 Dose: 100 mg - Labs Labs: 02/17/18 06:10 02/21/18 09:40
[2018-02-25] MEDS: Insulin Detemir 100 Units/ml Inj SC SCH (21:14)
[2018-02-26] MEDS: Insulin Regular 100 units/ml SC SCH ×4 (06:16→23:50)
[2018-02-26] MEDS: Albuterol-Ipratrop 3 mg / 0.5 (3 ml) UD INH SCH ×3 (07:48→19:09)
[2018-02-26] MEDS: Multivitamin With Minerals Tab PO SCH (08:50)
[2018-02-26] MEDS: Carbidopa/Levodopa 25/250 PO SCH ×4 (08:52→21:16)
[2018-02-26] MEDS: guaiFENesin 600 mg ER Tab PO SCH ×2 (08:53→21:16)
[2018-02-26] MEDS: Pantoprazole 20 mg EC Tab PO SCH (08:53)
[2018-02-26] MEDS: Lidocaine 5% Patch TD SCH (08:53)
[2018-02-26] MEDS: AMITIZA 24 MCG PO SCH (08:54)
[2018-02-26] MEDS ORDERED: Oxycodone/Acetaminophen 5/325 mg Tab PO PRN (16:14)
--- NOTE | 2018-02-26 19:03 | CP.PCM.PN ---
Subjective - Date & Time of Evaluation Date of Evaluation: 02/25/18 Time of Evaluation: 10:00 - Subjective Subjective: patient seen and examined at bedside. no acute events overnight. no other complaints reported. Objective - Vital Signs/Intake and Output Vital Signs (last 24 hours): Temp Pulse Resp BP Pulse Ox 97.6 F 88 22 129/79 96 02/26/18 08:39 02/26/18 08:50 02/26/18 08:39 02/26/18 08:50 02/26/18 08:39 - Medications Medications: Current Medications Albuterol/Ipratropium (Duoneb 3 Mg/0.5 Mg (3 Ml) Ud) 3 ml INH RTID [facility] Last Admin: 02/26/18 13:50 Dose: Not Given Carbidopa/Levodopa (Sinemet) 1 tab PO QID [facility] Last Admin: 02/26/18 17:26 Dose: 1 tab Dextrose (Dextrose 50% Inj) 0 ml IV STAT PRN; Protocol PRN Reason: Hypoglycemia Protocol Dextrose (Glutose 15) 0 gm PO ONCE PRN; Protocol PRN Reason: Hypoglycemia Protocol Gabapentin (Neurontin) 100 mg PO Q12 [facility] Last Admin: 02/26/18 08:53 Dose: 100 mg Glucagon (Glucagen Diagnostic Kit) 0 mg IM STAT PRN; Protocol PRN Reason: Hypoglycemia Protocol Guaifenesin (Mucinex La) 600 mg PO Q12 [facility] Last Admin: 02/26/18 08:53 Dose: 600 mg Home Med (Patient's Own Medication) 1 unit PO DAILY [facility] Last Admin: 02/26/18 08:54 Dose: 1 unit Ibuprofen (Motrin Tab) 600 mg PO Q8 PRN PRN Reason: Pain, moderate (4-7) Insulin Detemir (Levemir) 20 units SC HS [facility] Last Admin: 02/25/18 21:14 Dose: 20 units Insulin Human Regular (Humulin R) 0 units SC ACCU-CHECK [facility]; Protocol Last Admin: 02/26/18 17:24 Dose: Not Given Lactic Acid (Lac-Hydrin 12% Lotion (225 G)) 1 applic TOP Q8 [facility] Last Admin: 02/26/18 14:26 Dose: 1 applic Lactulose (Enulose) 10 gm PO DAILY PRN PRN Reason: Constipation Last Admin: 02/19/18 08:35 Dose: 10 gm Lidocaine (Lidoderm) 1 ea TD 0900 [facility] Last Admin: 02/26/18 08:53 Dose: 1 ea Lisinopril (Zestril) 2.5 mg PO DAILY [facility] Last Admin: 02/26/18 08:50 Dose: 2.5 mg Multivitamins/Minerals (Therapeutic-M Tab) 1 tab PO DAILY [facility] Last Admin: 02/26/18 08:50 Dose: 1 tab Oxycodone/Acetaminophen (Percocet 5/325 Mg Tab) 1 tab PO Q6 PRN PRN Reason: Pain, severe (8-10) Stop: 03/01/18 16:13 Pantoprazole Sodium (Protonix Ec Tab) 20 mg PO DAILY [facility] Last Admin: 02/26/18 08:53 Dose: 20 mg Sitagliptin Phosphate (Januvia) 100 mg PO DAILY [facility] Last Admin: 02/26/18 08:53 Dose: 100 mg - Labs Labs: 02/17/18 06:10 02/21/18 09:40 - Additional Findings Additional findings: - Constitutional Appears: No Acute Distress - Head Exam Head Exam: NORMAL INSPECTION - Respiratory Exam Respiratory Exam: Clear to Ausculation Bilateral, NORMAL BREATHING PATTERN - Cardiovascular Exam Cardiovascular Exam: REGULAR RHYTHM, +S1, +S2 - GI/Abdominal Exam GI & Abdominal Exam: Soft. absent: Guarding, Rigid, Tenderness - Neurological Exam Neurological Exam: Alert, Awake, Oriented x3 Assessment and Plan - Assessment and Plan (Free Text) Assessment: 82 y/o male with hx of DM 2, Parkinsons who had a fall at home and sustained multiple left side rib fractures and noted to have cerebral hemorrhage that did not show progression. currently in acute rehab for PT. f/u sugar levels Continue physical therapy. Continue plan as ordered.
--- NOTE | 2018-02-26 19:04 | CP.PCM.PN ---
Subjective - Date & Time of Evaluation Date of Evaluation: 02/26/18 Time of Evaluation: 14:00 - Subjective Subjective: patient seen and examined at bedside. no acute events overnight. no other complaints reported. Objective - Vital Signs/Intake and Output Vital Signs (last 24 hours): Temp Pulse Resp BP Pulse Ox 97.6 F 88 22 129/79 96 02/26/18 08:39 02/26/18 08:50 02/26/18 08:39 02/26/18 08:50 02/26/18 08:39 - Medications Medications: Current Medications Albuterol/Ipratropium (Duoneb 3 Mg/0.5 Mg (3 Ml) Ud) 3 ml INH RTID [facility] Last Admin: 02/26/18 13:50 Dose: Not Given Carbidopa/Levodopa (Sinemet) 1 tab PO QID [facility] Last Admin: 02/26/18 17:26 Dose: 1 tab Dextrose (Dextrose 50% Inj) 0 ml IV STAT PRN; Protocol PRN Reason: Hypoglycemia Protocol Dextrose (Glutose 15) 0 gm PO ONCE PRN; Protocol PRN Reason: Hypoglycemia Protocol Gabapentin (Neurontin) 100 mg PO Q12 [facility] Last Admin: 02/26/18 08:53 Dose: 100 mg Glucagon (Glucagen Diagnostic Kit) 0 mg IM STAT PRN; Protocol PRN Reason: Hypoglycemia Protocol Guaifenesin (Mucinex La) 600 mg PO Q12 [facility] Last Admin: 02/26/18 08:53 Dose: 600 mg Home Med (Patient's Own Medication) 1 unit PO DAILY [facility] Last Admin: 02/26/18 08:54 Dose: 1 unit Ibuprofen (Motrin Tab) 600 mg PO Q8 PRN PRN Reason: Pain, moderate (4-7) Insulin Detemir (Levemir) 20 units SC HS [facility] Last Admin: 02/25/18 21:14 Dose: 20 units Insulin Human Regular (Humulin R) 0 units SC ACCU-CHECK [facility]; Protocol Last Admin: 02/26/18 17:24 Dose: Not Given Lactic Acid (Lac-Hydrin 12% Lotion (225 G)) 1 applic TOP Q8 [facility] Last Admin: 02/26/18 14:26 Dose: 1 applic Lactulose (Enulose) 10 gm PO DAILY PRN PRN Reason: Constipation Last Admin: 02/19/18 08:35 Dose: 10 gm Lidocaine (Lidoderm) 1 ea TD 0900 [facility] Last Admin: 02/26/18 08:53 Dose: 1 ea Lisinopril (Zestril) 2.5 mg PO DAILY [facility] Last Admin: 02/26/18 08:50 Dose: 2.5 mg Multivitamins/Minerals (Therapeutic-M Tab) 1 tab PO DAILY [facility] Last Admin: 02/26/18 08:50 Dose: 1 tab Oxycodone/Acetaminophen (Percocet 5/325 Mg Tab) 1 tab PO Q6 PRN PRN Reason: Pain, severe (8-10) Stop: 03/01/18 16:13 Pantoprazole Sodium (Protonix Ec Tab) 20 mg PO DAILY [facility] Last Admin: 02/26/18 08:53 Dose: 20 mg Sitagliptin Phosphate (Januvia) 100 mg PO DAILY [facility] Last Admin: 02/26/18 08:53 Dose: 100 mg - Labs Labs: 02/17/18 06:10 02/21/18 09:40 - Additional Findings Additional findings: - Constitutional Appears: No Acute Distress - Head Exam Head Exam: NORMAL INSPECTION - Respiratory Exam Respiratory Exam: Clear to Ausculation Bilateral, NORMAL BREATHING PATTERN - Cardiovascular Exam Cardiovascular Exam: REGULAR RHYTHM, +S1, +S2 - GI/Abdominal Exam GI & Abdominal Exam: Soft. absent: Guarding, Rigid, Tenderness - Neurological Exam Neurological Exam: Alert, Awake, Oriented x3 Assessment and Plan - Assessment and Plan (Free Text) Assessment: 82 y/o male with hx of DM 2, Parkinsons who had a fall at home and sustained multiple left side rib fractures and noted to have cerebral hemorrhage that did not show progression. currently in acute rehab for PT. f/u sugar levels decrease nsaids to prn Continue physical therapy. Continue plan as ordered.
--- NOTE | 2018-02-26 19:06 | CP.PCM.PN ---
Subjective - Date & Time of Evaluation Date of Evaluation: 02/23/18 Time of Evaluation: 11:00 - Subjective Subjective: patient seen and examined at bedside. no acute events overnight. no other complaints reported. Objective - Vital Signs/Intake and Output Vital Signs (last 24 hours): Temp Pulse Resp BP Pulse Ox 97.6 F 88 22 129/79 96 02/26/18 08:39 02/26/18 08:50 02/26/18 08:39 02/26/18 08:50 02/26/18 08:39 - Medications Medications: Current Medications Albuterol/Ipratropium (Duoneb 3 Mg/0.5 Mg (3 Ml) Ud) 3 ml INH RTID [facility] Last Admin: 02/26/18 13:50 Dose: Not Given Carbidopa/Levodopa (Sinemet) 1 tab PO QID [facility] Last Admin: 02/26/18 17:26 Dose: 1 tab Dextrose (Dextrose 50% Inj) 0 ml IV STAT PRN; Protocol PRN Reason: Hypoglycemia Protocol Dextrose (Glutose 15) 0 gm PO ONCE PRN; Protocol PRN Reason: Hypoglycemia Protocol Gabapentin (Neurontin) 100 mg PO Q12 [facility] Last Admin: 02/26/18 08:53 Dose: 100 mg Glucagon (Glucagen Diagnostic Kit) 0 mg IM STAT PRN; Protocol PRN Reason: Hypoglycemia Protocol Guaifenesin (Mucinex La) 600 mg PO Q12 [facility] Last Admin: 02/26/18 08:53 Dose: 600 mg Home Med (Patient's Own Medication) 1 unit PO DAILY [facility] Last Admin: 02/26/18 08:54 Dose: 1 unit Ibuprofen (Motrin Tab) 600 mg PO Q8 PRN PRN Reason: Pain, moderate (4-7) Insulin Detemir (Levemir) 20 units SC HS [facility] Last Admin: 02/25/18 21:14 Dose: 20 units Insulin Human Regular (Humulin R) 0 units SC ACCU-CHECK [facility]; Protocol Last Admin: 02/26/18 17:24 Dose: Not Given Lactic Acid (Lac-Hydrin 12% Lotion (225 G)) 1 applic TOP Q8 [facility] Last Admin: 02/26/18 14:26 Dose: 1 applic Lactulose (Enulose) 10 gm PO DAILY PRN PRN Reason: Constipation Last Admin: 02/19/18 08:35 Dose: 10 gm Lidocaine (Lidoderm) 1 ea TD 0900 [facility] Last Admin: 02/26/18 08:53 Dose: 1 ea Lisinopril (Zestril) 2.5 mg PO DAILY [facility] Last Admin: 02/26/18 08:50 Dose: 2.5 mg Multivitamins/Minerals (Therapeutic-M Tab) 1 tab PO DAILY [facility] Last Admin: 02/26/18 08:50 Dose: 1 tab Oxycodone/Acetaminophen (Percocet 5/325 Mg Tab) 1 tab PO Q6 PRN PRN Reason: Pain, severe (8-10) Stop: 03/01/18 16:13 Pantoprazole Sodium (Protonix Ec Tab) 20 mg PO DAILY [facility] Last Admin: 02/26/18 08:53 Dose: 20 mg Sitagliptin Phosphate (Januvia) 100 mg PO DAILY [facility] Last Admin: 02/26/18 08:53 Dose: 100 mg - Labs Labs: 02/17/18 06:10 02/21/18 09:40 - Additional Findings Additional findings: - Constitutional Appears: No Acute Distress - Head Exam Head Exam: NORMAL INSPECTION - Respiratory Exam Respiratory Exam: Clear to Ausculation Bilateral, NORMAL BREATHING PATTERN - Cardiovascular Exam Cardiovascular Exam: REGULAR RHYTHM, +S1, +S2 - GI/Abdominal Exam GI & Abdominal Exam: Soft. absent: Guarding, Rigid, Tenderness - Neurological Exam Neurological Exam: Alert, Awake, Oriented x3 Assessment and Plan - Assessment and Plan (Free Text) Assessment: 82 y/o male with hx of DM 2, Parkinsons who had a fall at home and sustained multiple left side rib fractures and noted to have cerebral hemorrhage that did not show progression. currently in acute rehab for PT. f/u sugar levels, adjust insulin accordingly Continue physical therapy. Continue plan as ordered.
[2018-02-26] MEDS: Insulin Detemir 100 Units/ml Inj SC SCH (21:28)
[2018-02-27] MEDS: Insulin Regular 100 units/ml SC SCH ×4 (06:24→23:00)
[2018-02-27] MEDS: Albuterol-Ipratrop 3 mg / 0.5 (3 ml) UD INH SCH ×3 (07:08→19:08)
[2018-02-27] MEDS: guaiFENesin 600 mg ER Tab PO SCH ×2 (08:31→21:22)
[2018-02-27] MEDS: AMITIZA 24 MCG PO SCH (08:31)
[2018-02-27] MEDS: Multivitamin With Minerals Tab PO SCH (08:31)
[2018-02-27] MEDS: Carbidopa/Levodopa 25/250 PO SCH ×4 (08:32→21:22)
[2018-02-27] MEDS: Lidocaine 5% Patch TD SCH (08:33)
[2018-02-27] MEDS: Pantoprazole 20 mg EC Tab PO SCH (09:08)
--- NOTE | 2018-02-27 18:44 | CP.PCM.PN ---
Subjective - Date & Time of Evaluation Date of Evaluation: 02/27/18 Time of Evaluation: 11:00 - Subjective Subjective: patient seen and examined at bedside. no acute events overnight. no other complaints reported. spoke with family at bedside. Objective - Vital Signs/Intake and Output Vital Signs (last 24 hours): Temp Pulse Resp BP Pulse Ox 97.3 F L 71 19 130/65 96 02/27/18 08:15 02/27/18 08:32 02/27/18 08:15 02/27/18 08:32 02/27/18 08:15 - Medications Medications: Current Medications Albuterol/Ipratropium (Duoneb 3 Mg/0.5 Mg (3 Ml) Ud) 3 ml INH RTID [facility] Last Admin: 02/27/18 13:02 Dose: 3 ml Carbidopa/Levodopa (Sinemet) 1 tab PO QID [facility] Last Admin: 02/27/18 17:20 Dose: 1 tab Dextrose (Dextrose 50% Inj) 0 ml IV STAT PRN; Protocol PRN Reason: Hypoglycemia Protocol Dextrose (Glutose 15) 0 gm PO ONCE PRN; Protocol PRN Reason: Hypoglycemia Protocol Gabapentin (Neurontin) 100 mg PO Q12 [facility] Last Admin: 02/27/18 08:32 Dose: 100 mg Glucagon (Glucagen Diagnostic Kit) 0 mg IM STAT PRN; Protocol PRN Reason: Hypoglycemia Protocol Guaifenesin (Mucinex La) 600 mg PO Q12 [facility] Last Admin: 02/27/18 08:31 Dose: 600 mg Home Med (Patient's Own Medication) 1 unit PO DAILY [facility] Last Admin: 02/27/18 08:31 Dose: 1 unit Ibuprofen (Motrin Tab) 600 mg PO Q8 PRN PRN Reason: Pain, moderate (4-7) Insulin Detemir (Levemir) 20 units SC HS [facility] Last Admin: 02/26/18 21:28 Dose: 20 units Insulin Human Regular (Humulin R) 0 units SC ACCU-CHECK [facility]; Protocol Last Admin: 02/27/18 17:19 Dose: 2 units Lactic Acid (Lac-Hydrin 12% Lotion (225 G)) 1 applic TOP Q8 [facility] Last Admin: 02/27/18 13:16 Dose: 1 applic Lactulose (Enulose) 10 gm PO DAILY PRN PRN Reason: Constipation Last Admin: 02/19/18 08:35 Dose: 10 gm Lidocaine (Lidoderm) 1 ea TD 0900 [facility] Last Admin: 02/27/18 08:33 Dose: 1 ea Lisinopril (Zestril) 2.5 mg PO DAILY [facility] Last Admin: 02/27/18 08:32 Dose: 2.5 mg Multivitamins/Minerals (Therapeutic-M Tab) 1 tab PO DAILY [facility] Last Admin: 02/27/18 08:31 Dose: 1 tab Oxycodone/Acetaminophen (Percocet 5/325 Mg Tab) 1 tab PO Q6 PRN PRN Reason: Pain, severe (8-10) Stop: 03/01/18 16:13 Pantoprazole Sodium (Protonix Ec Tab) 20 mg PO DAILY [facility] Last Admin: 02/27/18 09:08 Dose: 20 mg Sitagliptin Phosphate (Januvia) 100 mg PO DAILY [facility] Last Admin: 02/27/18 08:31 Dose: 100 mg - Labs Labs: 02/17/18 06:10 02/21/18 09:40 - Additional Findings Additional findings: - Constitutional Appears: No Acute Distress - Head Exam Head Exam: NORMAL INSPECTION - Respiratory Exam Respiratory Exam: Clear to Ausculation Bilateral, NORMAL BREATHING PATTERN - Cardiovascular Exam Cardiovascular Exam: REGULAR RHYTHM, +S1, +S2 - GI/Abdominal Exam GI & Abdominal Exam: Soft. absent: Guarding, Rigid, Tenderness - Neurological Exam Neurological Exam: Alert, Awake, Oriented x3 Assessment and Plan - Assessment and Plan (Free Text) Assessment: 82 y/o male with hx of DM 2, Parkinsons who had a fall at home and sustained multiple left side rib fractures and noted to have cerebral hemorrhage that did not show progression. currently in acute rehab for PT. f/u sugar levels Continue physical therapy. Continue plan as ordered.
[2018-02-27] MEDS: Insulin Detemir 100 Units/ml Inj SC SCH (21:21)
[2018-02-28] MEDS: Insulin Regular 100 units/ml SC SCH ×4 (06:12→23:09)
[2018-02-28] MEDS: Albuterol-Ipratrop 3 mg / 0.5 (3 ml) UD INH SCH ×3 (07:43→19:16)
[2018-02-28] MEDS: guaiFENesin 600 mg ER Tab PO SCH ×2 (08:10→21:04)
[2018-02-28] MEDS: Carbidopa/Levodopa 25/250 PO SCH ×4 (08:11→21:04)
[2018-02-28] MEDS: Pantoprazole 20 mg EC Tab PO SCH (08:11)
[2018-02-28] MEDS: Multivitamin With Minerals Tab PO SCH (08:11)
[2018-02-28] MEDS: AMITIZA 24 MCG PO SCH (08:11)
[2018-02-28] MEDS: Lidocaine 5% Patch TD SCH (08:12)
--- NOTE | 2018-02-28 14:28 | CP.PCM.PN ---
Subjective - Date & Time of Evaluation Date of Evaluation: 02/28/18 Time of Evaluation: 10:00 - Subjective Subjective: patient seen during therapy. no acute events overnight. no other complaints reported. Objective - Vital Signs/Intake and Output Vital Signs (last 24 hours): Temp Pulse Resp BP Pulse Ox 98.1 F 86 20 139/67 97 02/28/18 07:28 02/28/18 10:28 02/28/18 07:28 02/28/18 08:10 02/28/18 07:28 - Medications Medications: Current Medications Albuterol/Ipratropium (Duoneb 3 Mg/0.5 Mg (3 Ml) Ud) 3 ml INH RTID [facility] Last Admin: 02/28/18 07:43 Dose: 3 ml Carbidopa/Levodopa (Sinemet) 1 tab PO QID [facility] Last Admin: 02/28/18 13:33 Dose: 1 tab Dextrose (Dextrose 50% Inj) 0 ml IV STAT PRN; Protocol PRN Reason: Hypoglycemia Protocol Dextrose (Glutose 15) 0 gm PO ONCE PRN; Protocol PRN Reason: Hypoglycemia Protocol Gabapentin (Neurontin) 100 mg PO Q12 [facility] Last Admin: 02/28/18 08:11 Dose: 100 mg Glucagon (Glucagen Diagnostic Kit) 0 mg IM STAT PRN; Protocol PRN Reason: Hypoglycemia Protocol Guaifenesin (Mucinex La) 600 mg PO Q12 [facility] Last Admin: 02/28/18 08:10 Dose: 600 mg Home Med (Patient's Own Medication) 1 unit PO DAILY [facility] Last Admin: 02/28/18 08:11 Dose: 1 unit Ibuprofen (Motrin Tab) 600 mg PO Q8 PRN PRN Reason: Pain, moderate (4-7) Last Admin: 02/28/18 10:25 Dose: 600 mg Insulin Detemir (Levemir) 20 units SC HS [facility] Last Admin: 02/27/18 21:21 Dose: 20 units Insulin Human Regular (Humulin R) 0 units SC ACCU-CHECK [facility]; Protocol Last Admin: 02/28/18 12:09 Dose: Not Given Lactic Acid (Lac-Hydrin 12% Lotion (225 G)) 1 applic TOP Q8 [facility] Last Admin: 02/28/18 13:33 Dose: 1 applic Lactulose (Enulose) 10 gm PO DAILY PRN PRN Reason: Constipation Last Admin: 02/19/18 08:35 Dose: 10 gm Lidocaine (Lidoderm) 1 ea TD 0900 [facility] Last Admin: 02/28/18 08:12 Dose: 1 ea Lisinopril (Zestril) 2.5 mg PO DAILY [facility] Last Admin: 02/28/18 08:10 Dose: 2.5 mg Multivitamins/Minerals (Therapeutic-M Tab) 1 tab PO DAILY [facility] Last Admin: 02/28/18 08:11 Dose: 1 tab Oxycodone/Acetaminophen (Percocet 5/325 Mg Tab) 1 tab PO Q6 PRN PRN Reason: Pain, severe (8-10) Stop: 03/01/18 16:13 Pantoprazole Sodium (Protonix Ec Tab) 20 mg PO DAILY [facility] Last Admin: 02/28/18 08:11 Dose: 20 mg Sitagliptin Phosphate (Januvia) 100 mg PO DAILY [facility] Last Admin: 02/28/18 08:11 Dose: 100 mg - Labs Labs: 02/17/18 06:10 02/21/18 09:40 Assessment and Plan - Assessment and Plan (Free Text) Assessment: 82 y/o male with hx of DM 2, Parkinsons who had a fall at home and sustained multiple left side rib fractures and noted to have cerebral hemorrhage that did not show progression. currently in acute rehab for PT. Continue physical therapy. Continue plan as ordered.
--- NOTE | 2018-02-28 17:18 | CP.PCM.PN ---
Subjective - Date & Time of Evaluation Date of Evaluation: 02/28/18 Time of Evaluation: 17:18 - Subjective Subjective: Patient seen in the room, doing ok denies sob/cp working hard in therapies Objective - Vital Signs/Intake and Output Vital Signs (last 24 hours): Temp Pulse Resp BP Pulse Ox 98.1 F 86 20 139/67 97 02/28/18 07:28 02/28/18 10:28 02/28/18 07:28 02/28/18 08:10 02/28/18 07:28 - Medications Medications: Current Medications Albuterol/Ipratropium (Duoneb 3 Mg/0.5 Mg (3 Ml) Ud) 3 ml INH RTID [facility] Last Admin: 02/28/18 14:56 Dose: Not Given Carbidopa/Levodopa (Sinemet) 1 tab PO QID [facility] Last Admin: 02/28/18 17:11 Dose: 1 tab Dextrose (Dextrose 50% Inj) 0 ml IV STAT PRN; Protocol PRN Reason: Hypoglycemia Protocol Dextrose (Glutose 15) 0 gm PO ONCE PRN; Protocol PRN Reason: Hypoglycemia Protocol Gabapentin (Neurontin) 100 mg PO Q12 [facility] Last Admin: 02/28/18 08:11 Dose: 100 mg Glucagon (Glucagen Diagnostic Kit) 0 mg IM STAT PRN; Protocol PRN Reason: Hypoglycemia Protocol Guaifenesin (Mucinex La) 600 mg PO Q12 [facility] Last Admin: 02/28/18 08:10 Dose: 600 mg Home Med (Patient's Own Medication) 1 unit PO DAILY [facility] Last Admin: 02/28/18 08:11 Dose: 1 unit Ibuprofen (Motrin Tab) 600 mg PO Q8 PRN PRN Reason: Pain, moderate (4-7) Last Admin: 02/28/18 10:25 Dose: 600 mg Insulin Detemir (Levemir) 20 units SC HS [facility] Last Admin: 02/27/18 21:21 Dose: 20 units Insulin Human Regular (Humulin R) 0 units SC ACCU-CHECK [facility]; Protocol Last Admin: 02/28/18 16:16 Dose: Not Given Lactic Acid (Lac-Hydrin 12% Lotion (225 G)) 1 applic TOP Q8 [facility] Last Admin: 02/28/18 13:33 Dose: 1 applic Lactulose (Enulose) 10 gm PO DAILY PRN PRN Reason: Constipation Last Admin: 02/19/18 08:35 Dose: 10 gm Lidocaine (Lidoderm) 1 ea TD 0900 [facility] Last Admin: 02/28/18 08:12 Dose: 1 ea Lisinopril (Zestril) 2.5 mg PO DAILY [facility] Last Admin: 02/28/18 08:10 Dose: 2.5 mg Multivitamins/Minerals (Therapeutic-M Tab) 1 tab PO DAILY [facility] Last Admin: 02/28/18 08:11 Dose: 1 tab Oxycodone/Acetaminophen (Percocet 5/325 Mg Tab) 1 tab PO Q6 PRN PRN Reason: Pain, severe (8-10) Stop: 03/01/18 16:13 Pantoprazole Sodium (Protonix Ec Tab) 20 mg PO DAILY [facility] Last Admin: 02/28/18 08:11 Dose: 20 mg Sitagliptin Phosphate (Januvia) 100 mg PO DAILY [facility] Last Admin: 02/28/18 08:11 Dose: 100 mg - Labs Labs: 02/17/18 06:10 02/21/18 09:40
[2018-02-28] MEDS: Lactulose 10 gm/15 ml Syrup PO PRN (21:04)
[2018-02-28] MEDS: Insulin Detemir 100 Units/ml Inj SC SCH (21:05)
[2018-03-01] MEDS: Insulin Regular 100 units/ml SC SCH ×4 (06:19→23:01)
[2018-03-01] MEDS: Albuterol-Ipratrop 3 mg / 0.5 (3 ml) UD INH SCH ×3 (07:42→19:25)
[2018-03-01] MEDS: AMITIZA 24 MCG PO SCH (08:30)
[2018-03-01] MEDS: guaiFENesin 600 mg ER Tab PO SCH ×2 (08:30→21:23)
[2018-03-01] MEDS: Carbidopa/Levodopa 25/250 PO SCH ×4 (08:31→21:23)
[2018-03-01] MEDS: Multivitamin With Minerals Tab PO SCH (08:31)
[2018-03-01] MEDS: Pantoprazole 20 mg EC Tab PO SCH (08:32)
[2018-03-01] MEDS: Lidocaine 5% Patch TD SCH (08:32)
--- NOTE | 2018-03-01 13:13 | PCM.PSYTMC ---
Acute Rehab Team Conference - - Vital Signs: Vital Signs (Last 8 Hours): Vital Signs 03/01/18 03/01/18 03/01/18 07:31 08:31 09:00 Temperature 97.3 F L 97.3 F L Pulse Rate 66 66 Respiratory 22 22 Rate Blood Pressure 148/71 148/71 148/71 O2 Sat by Pulse 99 Oximetry Pain: 0 - Precautions: Precautions: Fall Prevention - Medications/Other Issues: Comment: Still tries to get up or transfer without assistance despite instructions - Consults: Comment: Dr. Das - Toileting: Toileting: Maximal Assistance - Bladder Management: Bladder Pattern: Normal Voiding Method: Toilet, Urinal Bladder Management: Supervision Other Intervention:: 0 - Transfers: Transfers: Moderate Assistance - ADL's: ADL's: Moderate Assistance - Pain Management: Other Intervention:: On lidoderm patch daily and Ibuprofen 600mg PRN - Patient/Family Teaching: Other Intervention:: Fall and safety precautions - Goals/Time Frame: Comment: Per multidisciplinary care plan and goals - Provider: Registered Nurse:: Taylor Gaytan Physical Therapy - Bed Mobility Bed Mobility: Verbal Cues, Contact Guard Comment: log rolling method recommended - Transfers Wheelchair to Mat: Verbal Cues, Minimal Assistance Sit to Stand: Verbal Cues, Minimal Assistance, Moderate Assistance Comment: incr'd assist needed for t/f today due to incr L rib pain as session progressed. (Pt recently CGA for t/f) - Ambulation Level of Assistance: Verbal Cues, Contact Guard Distance (ft.): 200 Assistive Devices: Rolling Walker Comment: x2, 100' x1, 20' x 2. vc for upright posture, B heel strike, to incr MARYSE, to remain inside frame of RW. occ incr'd unsteadiness due to narrow MARYSE. difficulty navigating turns and obstacles. Incr'd L instability noted (lauryn at foot/ankle) w/ fatigue. noted LLE w/ slightly greater instability than RLE - Stair Negotiation Stairs: Level of Assistance: Verbal Cues, Minimal Assistance Number of Stairs: 6 Handrails: Bilateral Comment: 6 in steps, step to pattern. vc for sequencing, poor carryover noted, narrow MARYSE. Pt fluctuated w/ step through and step to - Standing Balance Static Stand: Contact Guard Assist Comment: supported - Pain Pain (assessed during therapy session): 9 Alleviating Techniques: Medication, Position Change, Relaxation Techniques, Exercise Comment: L rib pain - Insight/Carryover Insight/Carryover: Fair - Patient/Family Education Comment: safety, Rehab goals, POC, fxnl mob, DME, posture, benefits of being OOB, activity pacing, CVA recovery related topics, - Assessment/Plan Assessment: 82 yo male admitted to [facility] acute rehab s/p ICH w/ fall and L rib fx and comorbidity of PD. Pt's t/f status fluctuates due to rib pain. Despite this pt is making progress and will benefit from cont'd skilled acute rehab PT to maximize fxnl mob, balance, activity tolerance and safety. - Goals Tiimeframe: 3 weeks Goals: Sit < > supine with S. Sit < > stand transfers with RW and S. Pt will ambulate 150 ft with RW and S - Provider Physical Therapist:: Pat Cardozo License Number:: [id number] Occupational Therapy - Arousal/Attention/Orientation Level of Consciousness: Awake, Alert Patient Orientation: Person, Place, Time, Appropriate to Age, Appropriate to Situation Assessment Comment: -less L rib area pain. -less overall rigidity. -less overall lethargy. -increased activity tolerance and overall motor control. - increased psotural control - ADL/IADL Self Feeding: Set-up Help Grooming: Supervision, Set-up Help Bathing-Upper Ext: Verbal Cues, Set-up Help, Minimal Assistance Bathing-Lower Ext: Verbal Cues, Set-up Help, Moderate Assistance Dressing-Upper Ext: Independent, Set-up Help Dressing-Lower Ext: Verbal Cues, Set-up Help, Minimal Assistance Comment: -pt with trunk mobility/ BUE/BLES flexibility & ROM thus able to complete lower body adls with greater I from od assist to min assist level--takes longer than customary - Sitting Balance Static Sitting: Supervision Dynamic Sitting: Reaches across midline, Reaches out of base of support, Reaches within base of support, Contact Guard Assist Comment: unsupported at edge of bed - Transfers Wheelchair to Bed Transfers: Verbal Cues, Set-up Help, Minimal Assistance Toilet Transfers: Verbal Cues, Set-up Help, Minimal Assistance Comment: shower chair transfers: Mod assist & verbal cues 2' slippery surfaces - Wheelchair Management Level of Assistance: Supervision, Verbal Cues, Set-up Help Distance (ft.): 150 - Upper Extremity Status Right Upper Extremity Comment: AROM is WNLs: 4/5 Left Upper Extremity Comment: AROM is WNLs: 4/5 - Pain Pain (assessed during therapy session): 3 Alleviating Techniques: Medication, Position Change, Distraction, Inactivity Comment: with less pain overall in L rib area - Insight/Carryover Insight/Carryover: Fair - Patient/Family Education Comment: -adls/transfers/mobility training--further training needed. -caregiver ed re: pt's limitation, goals and likely need 24 hour care upon dc from acute rehab. -w/c propulsion/management. -rehab/OT goals, plan of care. -encourage adl participation, toileting. -review use of call arriaga for safety, pt with limited insight re: limitations & fall risk as eveidenced as attempting to get up without assistance. -toileting program--to prevent bowel/bladder accidents - Assessment/Plan Assessment: Pt is a 82 year old bilingual(Dominican/Kazakh) male with dx: intracranial hemorrhage. *Precautions: falls(w/c alarm), cardiac, impaired cognition/memory, impaired respiratory funtions(rib pain). Pt continues to make demonstrate steady improvements in self care, transfers, functional mobility with decrease overall pain and shortness of breath. Pt's O2 sat post tx 95-96% room air--pt no longer desats with activities. Pt exhibits increase endurance/activity tolerance during today's tx session. Pt limited by L rib pain , postural control, rigidity and activity tolerance. Pt will continue skilled OT to maxmize function in self care, transfers/mobility using adaptive/c ompensatory strategies. Pt requires less rest breaks with functional activities above--thus increased activity tolerance. Pt has limited insight into limitations as evidenced as getting up without assistance although reminded to call for assistance. Pt may likely need 24 hour care at home or JOSEPHINE after acute rehab stay. Goal: Supervision for self care, transfers/mobility with assistive device. - Goals Timeframe: 8 days Comment: *FEEDING: Mod I-open containers, packages, cut up food with Mod I. *GROOMING: I/setup seated. *LOWER BODY DRESSING: Pt to don pants/undergarment, B socks with CG/CS assist & verbal cues seated in chair, cross over method. *TOILETING: CG/Min assist and verbal cues steadying with RW, grab bar prn 100% of time. *TRANSFERS:<->bed, commode, w/c, & shower bench Min assist and verbal cues. *W/C PROPULSION: 150 feet with Distant Supervision, manage B brakes with Supervision for safety. *BATHING: minimal assist & verbal cues seated. *CAREGIVER ED: caregiver to assist with adls, transfers & mobility with verbal cues form staff. *STATIC SITTING, unsupported: I, dynamic(unsupported) Supervision for completion of am care - Provider Occupational Therapist:: Shobha Archibald License Number: [id number] Speech Therapy - Consult Information Patient on Program: Yes Medical Diagnosis: ICH; Parkinson's disease - Assessment Memory Impairment: Mild Speech/Articulation Impairment: Moderate - Plan Assessment: Abraham Dickens presents with 1.) moderate-severe dysphonia and mild dysarthria characterized by breathy, hoarse vocal quality with impaired vocal loudness, periods of aphonia, and pitch breaks, as well as impaired articulatory precision at the sentence level, all negatively impacting speech intelligibility; and 2.) mild cognitive-linguistic deficits characterized by impaired short-term recall and word retrieval. Pt is demonstrating improvements in both vocal quality and memory over the course of tx; he reported that his family has noticed improvements in his voice as well over the phone. Pt demonstrates excellent participation in tx tasks and would benefit from continued ST for improved vocal quality, intelligibility, and cognitive- linguistic skills. Plan: Continue Speech/Language Therapy Frequency: 3-5 times per week Duration: 1 week Goals/Timeframe: Please see progress note dated 02/28/18 for updated goals/POC Recommendations: Continue ST 3-5x/week - Provider Therapist: Sierra Berry License Number: [id number] Recreational Therapy - Participation Participation: Participates in Individual and/or Group Sessions - Socialization Level of Socialization: Initiates/interacts freely with care givers and peer - Diversional Time Diversional Time: enjoys playing dominoes, watching television - Assessment Assessment/Plan: Pt is agreeable to participate in recreation therapy sessions following encouragement. Pt enjoys participating in dominoes task as he can recall task rules independently. For any new leisure tasks that pt is oriented to, pt requires min-mod verbal cues for direction following and carryover of task rules. Pt's barriers to participation is pain and/or fatigue. However, provide pt with rest breaks and deep breathing in between rounds of leisure tasks. Pt will continue to benefit from participating in recreation therapy sessions throughout stay on unit. Problems Currently Limiting Participation: Pt will be encouraged to participate in 1:1 and group recreation therapy sessions 3-5x week to improve direction following, command following, leisure awareness level, attention to task, and divert pt from pain. Goals and Time Frame: Pt will be encouraged to participate in 1:1 and group recreation therapy sessions 3-5x week to improve direction following, command following, leisure awareness level, attention to task, and divert pt from pain. - Provider Therapist: Liberty Ramos Nutrition - Current Diet Current Diet/Supplement/Feedings: Moderate consistent CHO heart healthy diet - Appetite Percent Meal Consumed: 50-74% - Assessment/Goals/Time Frame Assessments/Goals/Time Frame: Pt at moderate nutritional risk. goals: 1. Pt to consume 75-100% of meals(partially met, continue). 2. Blood glucoses to be between 70-180 mg/dl(partially met, continue). Follow-up due on 03/07/2018 - Provider Provider: Abigail Maria Case Management - Psychosocial Assessment Support Systems: Patient's daughter Rebeca is supportive and visits daily- [phone] Psychological Interventions/Needs: Patient is alert with cognitive impairments. 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 Intervention/Goal/Outcome: 1. Goal: Supervision overall? 2. Home vs JOSEPHINE d ependent on progress and family support- discharge options discussed with family, daughter to explored option of private hiring for services at home vs JOSEPHINE with family. 3. Tentative discharge date: 03/03. 4. continued stay auth, LAD: 02/28- updates to be faxed at that time F: [phone]. 5. continued emotional support. - Discharge Plan Discharge Plan: Subacute care - Provider Provider: Joshua Coats License Number: [id number] Rehabilitation Plan - Treatment Plan Treatment Plan: Physical Therapy, Occupational Therapy, Speech, Dietary, Patient/Family Education - Discharge Plan Estimated Date of Discharge: 03/03/18 Discharge to: Subacute
[2018-03-01] MEDS: Lactulose 10 gm/15 ml Syrup PO PRN (13:38)
--- NOTE | 2018-03-01 17:34 | PN ---
DATE: 03/01/2018 SUBJECTIVE: The patient seen and examined. Interim events noted. The patient remains in Acute Rehab Unit. Physiatry Intervention noted and appreciated. The patient feels okay. Denies any specific complaint. No chest pain or shortness of breath. PHYSICAL EXAMINATION: GENERAL: The patient is in no acute distress. VITAL SIGNS: Stable. HEART: S1 and S2 normal and regular. LUNGS: Good bilateral air exchange. ABDOMEN: Soft and nontender. EXTREMITIES: No edema. No calf swelling. No tenderness. No acute ischemia. UNDERTAKER ASSISTANT: Exam is essentially unchanged. There does not seem to be acute gross focal motor or sensory neurological deficit. The patient is remarkably well after . DIAGNOSTIC DATA: Available diagnostic data reviewed. ASSESSMENT AND PLAN: Overall, the patient is clinically stable. Plan as ordered. Dominic Armando MD
--- NOTE | 2018-03-01 19:25 | CP.PCM.PN ---
Subjective - Date & Time of Evaluation Date of Evaluation: 03/01/18 Time of Evaluation: 19:24 - Subjective Subjective: He was seen in the room with family present denies sob/cp improved left rib pain doing well in therapies continue current care will need short JOSEPHINE stay prior to d/c home Objective - Vital Signs/Intake and Output Vital Signs (last 24 hours): Temp Pulse Resp BP Pulse Ox 97.3 F L 66 22 148/71 99 03/01/18 09:00 03/01/18 09:00 03/01/18 09:00 03/01/18 09:00 03/01/18 07:31 - Medications Medications: Current Medications Albuterol/Ipratropium (Duoneb 3 Mg/0.5 Mg (3 Ml) Ud) 3 ml INH RTID [facility] Last Admin: 03/01/18 13:13 Dose: 3 ml Carbidopa/Levodopa (Sinemet) 1 tab PO QID [facility] Last Admin: 03/01/18 17:37 Dose: 1 tab Dextrose (Dextrose 50% Inj) 0 ml IV STAT PRN; Protocol PRN Reason: Hypoglycemia Protocol Dextrose (Glutose 15) 0 gm PO ONCE PRN; Protocol PRN Reason: Hypoglycemia Protocol Gabapentin (Neurontin) 100 mg PO Q12 [facility] Last Admin: 03/01/18 08:38 Dose: 100 mg Glucagon (Glucagen Diagnostic Kit) 0 mg IM STAT PRN; Protocol PRN Reason: Hypoglycemia Protocol Guaifenesin (Mucinex La) 600 mg PO Q12 [facility] Last Admin: 03/01/18 08:30 Dose: 600 mg Home Med (Patient's Own Medication) 1 unit PO DAILY [facility] Last Admin: 03/01/18 08:30 Dose: 1 unit Ibuprofen (Motrin Tab) 600 mg PO Q8 PRN PRN Reason: Pain, moderate (4-7) Last Admin: 02/28/18 10:25 Dose: 600 mg Insulin Detemir (Levemir) 20 units SC HS [facility] Last Admin: 02/28/18 21:05 Dose: 20 units Insulin Human Regular (Humulin R) 0 units SC ACCU-CHECK [facility]; Protocol Last Admin: 03/01/18 17:37 Dose: Not Given Lactic Acid (Lac-Hydrin 12% Lotion (225 G)) 1 applic TOP Q8 [facility] Last Admin: 03/01/18 14:00 Dose: 1 applic Lactulose (Enulose) 10 gm PO DAILY PRN PRN Reason: Constipation Last Admin: 03/01/18 13:38 Dose: 10 gm Lidocaine (Lidoderm) 1 ea TD 09 [facility] Last Admin: 03/01/18 08:32 Dose: 1 ea Lisinopril (Zestril) 2.5 mg PO DAILY [facility] Last Admin: 03/01/18 08:31 Dose: 2.5 mg Multivitamins/Minerals (Therapeutic-M Tab) 1 tab PO DAILY [facility] Last Admin: 03/01/18 08:31 Dose: 1 tab Pantoprazole Sodium (Protonix Ec Tab) 20 mg PO DAILY [facility] Last Admin: 03/01/18 08:32 Dose: 20 mg Sitagliptin Phosphate (Januvia) 100 mg PO DAILY [facility] Last Admin: 03/01/18 08:31 Dose: 100 mg - Labs Labs: 02/17/18 06:10 02/21/18 09:40
[2018-03-01] MEDS: Insulin Detemir 100 Units/ml Inj SC SCH (21:24)
[2018-03-02] MEDS: Insulin Regular 100 units/ml SC SCH ×4 (06:55→23:46)
[2018-03-02] MEDS: Albuterol-Ipratrop 3 mg / 0.5 (3 ml) UD INH SCH ×3 (07:38→19:14)
[2018-03-02] MEDS: Lactulose 10 gm/15 ml Syrup PO PRN (08:08)
[2018-03-02] MEDS: Lidocaine 5% Patch TD SCH (08:09)
[2018-03-02] MEDS: Carbidopa/Levodopa 25/250 PO SCH ×4 (08:09→21:14)
[2018-03-02] MEDS: Multivitamin With Minerals Tab PO SCH (08:09)
[2018-03-02] MEDS: guaiFENesin 600 mg ER Tab PO SCH ×2 (08:09→21:14)
[2018-03-02] MEDS: Pantoprazole 20 mg EC Tab PO SCH (08:09)
[2018-03-02] MEDS: AMITIZA 24 MCG PO SCH (08:09)
[2018-03-02] MEDS: Insulin Detemir 100 Units/ml Inj SC SCH (21:14)
[2018-03-03] MEDS: Insulin Regular 100 units/ml SC SCH ×4 (06:09→22:34)
[2018-03-03] MEDS: Albuterol-Ipratrop 3 mg / 0.5 (3 ml) UD INH SCH ×3 (08:27→19:30)
[2018-03-03] MEDS: AMITIZA 24 MCG PO SCH (08:34)
[2018-03-03] MEDS: Lidocaine 5% Patch TD SCH (08:34)
[2018-03-03] MEDS: Carbidopa/Levodopa 25/250 PO SCH ×4 (08:35→21:43)
[2018-03-03] MEDS: Multivitamin With Minerals Tab PO SCH (08:35)
[2018-03-03] MEDS: guaiFENesin 600 mg ER Tab PO SCH ×2 (08:35→21:43)
[2018-03-03] MEDS: Pantoprazole 20 mg EC Tab PO SCH (08:36)
--- NOTE | 2018-03-03 13:58 | CP.PCM.PN ---
Subjective - Date & Time of Evaluation Date of Evaluation: 03/03/18 Time of Evaluation: 13:56 - Subjective Subjective: Patient seen in the room with family I put an appeal call in to anny but the doctor never called juanita and it is now 2 hours past the set time He needs CG/Min A and needs a short course of JOSEPHINE prior to d/c home + DJD as well making progress difficult but he is working very hard and making good gains. Objective - Vital Signs/Intake and Output Vital Signs (last 24 hours): Temp Pulse Resp BP Pulse Ox 97.8 F 75 22 132/66 98 03/03/18 08:37 03/03/18 08:37 03/03/18 08:37 03/03/18 08:37 03/03/18 08:37 - Medications Medications: Current Medications Acetaminophen (Tylenol 325mg Tab) 650 mg PO Q4 PRN PRN Reason: Pain, severe (8-10) Acetaminophen (Tylenol 325mg Tab) 650 mg PO Q4 PRN PRN Reason: Pain, moderate (4-7) Albuterol/Ipratropium (Duoneb 3 Mg/0.5 Mg (3 Ml) Ud) 3 ml INH RTID [facility] Last Admin: 03/03/18 08:27 Dose: 3 ml Carbidopa/Levodopa (Sinemet) 1 tab PO QID [facility] Last Admin: 03/03/18 12:22 Dose: 1 tab Dextrose (Dextrose 50% Inj) 0 ml IV STAT PRN; Protocol PRN Reason: Hypoglycemia Protocol Dextrose (Glutose 15) 0 gm PO ONCE PRN; Protocol PRN Reason: Hypoglycemia Protocol Gabapentin (Neurontin) 100 mg PO Q12 [facility] Last Admin: 03/03/18 08:35 Dose: 100 mg Glucagon (Glucagen Diagnostic Kit) 0 mg IM STAT PRN; Protocol PRN Reason: Hypoglycemia Protocol Guaifenesin (Mucinex La) 600 mg PO Q12 [facility] Last Admin: 03/03/18 08:35 Dose: 600 mg Home Med (Patient's Own Medication) 1 unit PO DAILY [facility] Last Admin: 03/03/18 08:34 Dose: 1 unit Insulin Detemir (Levemir) 20 units SC HS [facility] Last Admin: 03/02/18 21:14 Dose: 20 units Insulin Human Regular (Humulin R) 0 units SC ACCU-CHECK [facility]; Protocol Last Admin: 03/03/18 12:22 Dose: 2 units Lactic Acid (Lac-Hydrin 12% Lotion (225 G)) 1 applic TOP Q8 [facility] Last Admin: 03/03/18 13:05 Dose: 1 applic Lactulose (Enulose) 10 gm PO DAILY PRN PRN Reason: Constipation Last Admin: 03/02/18 08:08 Dose: 10 gm Lidocaine (Lidoderm) 1 ea TD 0900 [facility] Last Admin: 03/03/18 08:34 Dose: 1 ea Lisinopril (Zestril) 2.5 mg PO DAILY [facility] Last Admin: 03/03/18 08:34 Dose: 2.5 mg Multivitamins/Minerals (Therapeutic-M Tab) 1 tab PO DAILY [facility] Last Admin: 03/03/18 08:35 Dose: 1 tab Pantoprazole Sodium (Protonix Ec Tab) 20 mg PO DAILY [facility] Last Admin: 03/03/18 08:36 Dose: 20 mg Sitagliptin Phosphate (Januvia) 100 mg PO DAILY [facility] Last Admin: 03/03/18 08:35 Dose: 100 mg - Labs Labs: 02/17/18 06:10 02/21/18 09:40
[2018-03-03] MEDS: Insulin Detemir 100 Units/ml Inj SC SCH (21:42)
[2018-03-04] MEDS: Insulin Regular 100 units/ml SC SCH ×3 (06:19→16:53)
[2018-03-04] MEDS: Albuterol-Ipratrop 3 mg / 0.5 (3 ml) UD INH SCH ×2 (08:11→14:03)
[2018-03-04] MEDS: Lidocaine 5% Patch TD SCH (08:58)
[2018-03-04] MEDS: guaiFENesin 600 mg ER Tab PO SCH (08:58)
[2018-03-04] MEDS: Carbidopa/Levodopa 25/250 PO SCH ×3 (08:59→16:54)
[2018-03-04] MEDS: AMITIZA 24 MCG PO SCH (08:59)
[2018-03-04] MEDS: Pantoprazole 20 mg EC Tab PO SCH (08:59)
[2018-03-04] MEDS: Multivitamin With Minerals Tab PO SCH (08:59)
[2018-03-04 09:00] VITALS: BP 120/54; PULSE 82
[2018-03-04 10:00] VITALS: RESP 22; TEMP 97.8; O2SAT 99
== END 2018-03-04 18:30 | disposition home health service (06) | DRG 66 ==
PROVIDERS: ADMIT Family Medicine; ATTEND Family Medicine
PROC: F07Z9FZ Gait Training/Functional Ambulation Treatment using Assistive, Adaptive, Supportive or Protective Equipment (ICD-10-PCS; principal; 2018-02-16)
PROC: F08Z4FZ Home Management Treatment using Assistive, Adaptive, Supportive or Protective Equipment (ICD-10-PCS; 2018-02-16)
PROC: F07M6FZ Therapeutic Exercise Treatment of Musculoskeletal System - Whole Body using Assistive, Adaptive, Supportive or Protective Equipment (ICD-10-PCS; 2018-02-17)
DX: I61.9 Nontraumatic intracerebral hemorrhage, unspecified (principal); G20 Parkinson's disease; I25.10 Atherosclerotic heart disease of native coronary artery without angina pectoris; I10 Essential (primary) hypertension; E11.9 Type 2 diabetes mellitus without complications; S22.49XD Multiple fractures of ribs, unspecified side, subsequent encounter for fracture with routine healing; Z91.81 History of falling; Z95.1 Presence of aortocoronary bypass graft